=== PATIENT | male | born 1935 | race Asian ===

== ENCOUNTER 2017-04-02 15:02 | Emergency (ER) | payer OTHER, MEDICAID ==
[~2017-04-02] VITALS: Ht 170.2 cm; Wt 86.6 kg
--- NOTE | 2017-04-02 15:50 | NUR ---
VILMA AT BS.
[2017-04-02] MEDS ORDERED: ONDANSETRON 4 MG TAB.RAPDIS PO ONE (16:00)
[2017-04-02] MEDS ORDERED: HYDROCODONE/APAP 5/325MG 1 EACH TABLET PO ONE (16:00)
[2017-04-02] MEDS ORDERED: ONDANSETRON 4 MG TAB.RAPDIS ONE (16:22)
[2017-04-02] MEDS ORDERED: HYDROCODONE/APAP 5/325MG 1 EACH TABLET ONE (16:22)
--- NOTE | 2017-04-02 16:45 | NUR ---
PT TAKEN TO CT.
--- NOTE | 2017-04-02 17:50 | NUR ---
Pt ambulatory with a steady gait, uses a walker regularly.
--- NOTE | 2017-04-02 18:15 | NUR ---
Patient discharged to home in stable condition. Written and verbal after care instructions given. Patient verbalizes understanding of instruction.
[2017-04-02 18:29] VITALS: BP 149/85
== END 2017-04-02 18:30 | disposition home or self-care (01) ==
LOC: ER 15:03
DX: M17.9 Osteoarthritis of knee, unspecified (principal)
CPT/HCPCS: 73503; 73560; 73700; 99284; A4606; Q0162; 73502; Z7610

== ENCOUNTER 2017-04-29 18:34 | Inpatient (IN) | payer OTHER, BC ==
[~2017-04-29] VITALS: Ht 167.6 cm; Wt 80.7 kg
--- NOTE | 2017-04-29 18:45 | NUR ---
[id number] FROM HOME: SEVERE BACK PAIN. DENIES FALL/INJURY. PATIENT IS AWAKE AND ALERT, APPEARS IN NO APPRENT DISTRESS, RESPIRATION EVEN AND UNLABORED, SKIN IS WARM TO TOUCH AND NON DIAPHORETIC. PT IS AFEBRILE. VSS
[2017-04-29] MEDS ORDERED: TRAMADOL HCL 50 MG TABLET PO ONE (19:00)
[2017-04-29] MEDS ORDERED: ONDANSETRON 4 MG TAB.RAPDIS PO ONE (19:00)
--- NOTE | 2017-04-29 19:09 | NUR ---
PT IS BACK FROM CT
[2017-04-29] MEDS ORDERED: ONDANSETRON 4 MG TAB.RAPDIS ONE (19:12)
[2017-04-29] MEDS ORDERED: TRAMADOL HCL 50 MG TABLET ONE (19:13)
--- NOTE | 2017-04-29 19:43 | NUR ---
received report from noble carlin for manny.
--- NOTE | 2017-04-29 20:33 | NUR ---
RESTAURANT FRONT MANAGER ETA 20 MINS
--- NOTE | 2017-04-29 20:36 | NUR ---
TEXTED DR. ARCEO FOR MRI APPROVAL..
--- NOTE | 2017-04-29 23:40 | NUR ---
REPORT GIVEN TO MS MIKKI OWENS FOR BHARAT.
[2017-04-29 23:45] VITALS: BP 149/78
[2017-04-29 23:50] VITALS: BP 149/78
[2017-04-30] MEDS ORDERED: ONDANSETRON HCL/PF 4 MG/2 ML VIAL IVP PRN
[2017-04-30] MEDS ORDERED: MAG HYDROX/AL HYDROX/SIMETH 30 ML UDC PO PRN
[2017-04-30] MEDS ORDERED: MAGNESIUM HYDROXIDE 30 ML UDC PO PRN
[2017-04-30] MEDS ORDERED: ACETAMINOPHEN 325 MG TABLET PO PRN
[2017-04-30] MEDS ORDERED: ZOLPIDEM TARTRATE 5 MG TABLET PO PRN
[2017-04-30] MEDS: HYDROCODONE/APAP 10/325MG 1 EA TABLET PO PRN ×3 (00:46→17:52)
[2017-04-30 06:20] LABS: BASOPHILS # (AUTO) 0.1 /CMM (0.0-0.2); BASOPHILS % (AUTO) 0.5 % (0.0-2.0); EOSINOPHILS # (AUTO) 0.4 /CMM (0.0-0.7); EOSINOPHILS % (AUTO) 3.8 % (0.0-6.0); HEMATOCRIT 32 % (39-51); HEMOGLOBIN 10.9 g/dL (13.5-17.5); LYMPHOCYTES # (AUTO) 0.9 /CMM (0.8-4.8); LYMPHOCYTES % (AUTO) 9.2 % (20.0-44.0); MEAN CORPUSCULAR HEMOGLOBIN 32 PG (26.0-33.0); MEAN CORPUSCULAR HGB CONC 35 g/dl (31.0-36.0); MEAN CORPUSCULAR VOLUME 92 fL (80-96); MONOCYTES # (AUTO) 1.1 /CMM (0.1-1.30); MONOCYTES % (AUTO) 10.7 % (2.0-12.0); NEUTROPHILS # (AUTO) 7.7 /CMM (1.8-8.9); NEUTROPHILS % (AUTO) 75.8 % (43.0-81.0); PLATELET COUNT (AUTO) 234 /CMM (150-450); RDW COEFFICIENT OF VARIATION 14.5 (11.5-15.0); RED BLOOD CELL COUNT(AUTO) 3.45 MIL/uL (4.5-6.0); WHITE BLOOD COUNT (AUTO) 10.2 K/uL (4.3-11.0)
--- NOTE | 2017-04-30 06:26 | NUR ---
MS RN NOTES AWAKE & RESPONSIVE. NOT IN ANY DISTRESS. NO SOB NOTED. DENIES ANY PAIN OR DISCOMFORT AT THIS TIME. MONITORED ACCORDINGLY. CALL LIGHT WITHIN REACH. BED IN LOWEST POSITION. SR UP X3 WITH BED ALARM ON FOR SAFETY. WILL ENDORSE TO NEXT SHIFT.
[2017-04-30 06:31] LABS: CHOLESTEROL 89 mg/dL (<200); HDL CHOLESTEROL 40 mg/dL (40-60); LDL 45 mg/dL (0-99); TRIGLYCERIDES 82 mg/dL (30-150)
[2017-04-30 06:37] LABS: CALCIUM, SERUM 8.5 mg/dL (8.5-10.1); CARBON DIOXIDE 29 mmol/L (21-32); CHLORIDE 92 mmol/L (98-107); CREATININE 1.2 mg/dL (0.6-1.3); GLUCOSE 134 mg/dL (74-106); MAGNESIUM 1.9 mg/dL (1.8-2.4); PHOSPHORUS 3.8 mg/dL (2.5-4.9); SODIUM SERUM 128 mmol/L (136-145); UREA NITROGEN, BLOOD 23 mg/dL (7-18)
--- NOTE | 2017-04-30 07:40 | NUR ---
REPORT RECEIVED AT THE BEDSIDE. PATIENT IS SLEEPING. NO SOB OR DISTRESS NOTED AT THIS TIME. PATIENT DOES NOT APPEAR TO BE IN PAIN, NO FACIAL GRIMACE NOTED. BED IN A LOW POSITION, CALL LIGHT WITHIN PATIENT REACH. WILL CONTINUE TO MONITOR.
[2017-04-30 08:00] VITALS: BP 120/66
--- NOTE | 2017-04-30 08:05 | NUR ---
PT IS REFUSING IV ACCESS AT THIS TIME. STATES "IF I DON'T NEED ANYTHING RIGHT NOW, I DON'T WANT IT." INFORMED PATIENT OF NEED FOR IV ACCESS WHILE IN THE HOSPITAL, BUT PATIENT STILL REFUSES "ONLY WHEN I NEED IT." WILL INFORM MD.
[2017-04-30] MEDS ORDERED: AMLO5TAB2 PO (08:28)
[2017-04-30] MEDS ORDERED: GLIP5TAB26 PO (08:28)
[2017-04-30] MEDS ORDERED: ETOD300C30 PO (08:28)
[2017-04-30] MEDS ORDERED: TAMS0.4C34 PO (08:28)
[2017-04-30] MEDS ORDERED: HYDR-3972 PO (08:28)
[2017-04-30] MEDS ORDERED: TRAM50TA2 PO (08:28)
[2017-04-30] MEDS ORDERED: LISI1TAB13 PO (08:28)
[2017-04-30] MEDS ORDERED: METO50TA16 PO (08:28)
[2017-04-30] MEDS ORDERED: ATOR10TA PO (08:28)
[2017-04-30] MEDS ORDERED: ALLO300T2 PO (08:28)
--- NOTE | 2017-04-30 11:15 | NUR ---
DR JAMES PLACED ORDER FOR URINE SODIUM. PATIENT HAS JUST URINATED AND FAMILY HAS DISCARDED IT. WILL COLLECT ON NEXT URINATION.
--- NOTE | 2017-04-30 13:33 | NUR ---
PT AGAIN, URINATED AND THEN THE FAMILY FLUSHED THE SPECIMEN. EDUCATED THE FAMILY AGAIN TO CALL ME AND NOT TOUCH THE URINE UNTIL A SAMPLE IS OBTAINED. THEY STATE UNDERSTANDING.
--- NOTE | 2017-04-30 14:51 | NUR ---
REMINDED CARLTON LYNCH, OF NEED FOR MED RECON. GAS LOAD DISPATCHER STATES SHE WILL TAKE CARE OF IT.
[2017-04-30 15:45] LABS: URINE SODIUM, RANDOM 72 mmol/l (40-220)
[2017-04-30] MEDS ORDERED: glipiZIDE XL 2.5 MG TAB.OSM.24 PO SCH (15:47)
[2017-04-30 16:00] VITALS: BP 141/77
[2017-04-30] MEDS ORDERED: GLIPIZIDE XL 5 MG TAB.OSM.24 PO SCH (16:00)
--- NOTE | 2017-04-30 16:33 | NUR ---
[facility]IS CALLED AND STATED PER THE SURGEON, OK TO AMBULATE WITH PT, NOTHING TO DO SURGICALLY.
[2017-04-30] MEDS: LISINOPRIL (20MG) 20 MG TABLET PO SCH (16:41)
[2017-04-30] MEDS: METOPROLOL TARTRATE 50 MG TABLET PO SCH (16:41)
--- NOTE | 2017-04-30 16:55 | NUR ---
CALLED [facility] AND LEFT A MESSAGE ORDERING A THILORACIC LUMBAR SPINE BRACE PER CRIS'S ORDER. WAITING FOR THEM TO BRING BRACE.
[2017-04-30] MEDS ORDERED: ETODOLAC 300 MG PO SCH (17:00)
--- NOTE | 2017-04-30 17:09 | NUR ---
CALLED [facility] TO ORDER THILORACIC LUMBAR SPINE BRACE. IT IS NOW AFTER HOURS AND THEY ARE NOT ANSWERING. LEFT A MESSAGE TO CALL BACK THE PATIENT NEEDS THE BRACE. Addendum: 04/30/17 at 1711 by ANGIE GERBER RN [facility] NUMBER IS [phone]
[2017-04-30 17:18] LABS: OSMOLALITY,URINE 609 mOS/kg (340-1090)
[2017-04-30] MEDS: ATORVASTATIN 10 MG TABLET PO SCH (17:51)
--- NOTE | 2017-04-30 18:52 | NUR ---
NO SIGNIFICANT CHANGES IN PATIENT CONDITION THROUGHOUT THE SHIFT. NO SOB OR DISTRESS NOTED AT THIS TIME. PATIENT IS SLEEPING AND DOES NOT APPEAR TO BE IN PAIN, NO FACIAL GRIMACE NOTED. BED IN LOW POSITION, CALL LIGHT WITHIN PATIENT REACH. WILL ENDORSE FOR BHARAT.
--- NOTE | 2017-04-30 19:20 | NUR ---
MS RN NOTES RECEIVED PT IN BED, AWAKE, A/O X 4 . WATCHING TV AT THIS TIME. VERBALLY RESPONSIVE. NO DISTRESS, NOR SOB NOTED.RESPIRATION IS EVEN AND UNLABORED. NO C/O PAIN OR DISCOMFORT AT THIS TIME. ALL NEEDS ATTENDED AND MET. PLAN OF CARE DISCUSSED WITH PT, PT VERBALIZED UNDERSTANDING. SAFETY PRECAUTIONS OBSERVED. CALL LIGHT WITHIN REACH. WILL CONTINUE TO MONITOR.
[2017-04-30] MEDS: TRAMADOL HCL 50 MG TABLET PO PRN (19:32)
[2017-04-30 20:00] VITALS: BP 146/87
--- NOTE | 2017-04-30 21:30 | NUR ---
PT IS A/O X 4, VERBALLY RESPONSIVE. REFUSED IV INSERTION, RISK AND BENEFITS EXPLAINED. PT STILL REFUSED.
[2017-04-30] MEDS: AMLODIPINE BESYLATE 5 MG TABLET PO SCH (21:47)
[2017-05-01] MEDS: HYDROCODONE/APAP 10/325MG 1 EA TABLET PO PRN ×2 (03:34→08:20)
[2017-05-01 06:33] LABS: URINE SODIUM, RANDOM 46 mmol/l (40-220)
--- NOTE | 2017-05-01 06:37 | NUR ---
MS RN NOTES PT IN BED, RESTING COMFORTABLY AT THIS TIME, A/O X4, VERBALLY RESPONSIVE. NO DISTRESS, NOR SOB NOTED.RESPIRATION IS EVEN AND UNLABORED. NO C/O PAIN OR DISCOMFORT AT THIS TIME. ALL NEEDS ATTENDED AND MET. NO SIGNIFICANT CHANGES NOTED. PT REFUSED IV INSERTION,X 3. RISK AND BENEFITS EXPLAINED , PT STILL REFUSED. SAFETY PRECAUTIONS OBSERVED. CALL LIGHT WITHIN REACH. WILL ENDORSE TO NEXT SHIFT FOR BHARAT.
[2017-05-01 06:38] LABS: CALCIUM, SERUM 8.2 mg/dL (8.5-10.1); CARBON DIOXIDE 28 mmol/L (21-32); CHLORIDE 89 mmol/L (98-107); CREATININE 1.2 mg/dL (0.6-1.3); GLUCOSE 132 mg/dL (74-106); MAGNESIUM 1.9 mg/dL (1.8-2.4); PHOSPHORUS 3.7 mg/dL (2.5-4.9); POTASSIUM 4.2 mmol/L (3.5-5.1); SODIUM SERUM 125 mmol/L (136-145); UREA NITROGEN, BLOOD 23 mg/dL (7-18)
[2017-05-01 06:48] LABS: THYROID STIMULATING HORMONE 1.111 uIU/mL (0.358-3.74)
[2017-05-01 08:00] VITALS: BP 141/69
[2017-05-01] MEDS: TAMSULOSIN 0.4 MG CAP.SR.24H PO SCH (08:50)
[2017-05-01] MEDS: glipiZIDE XL 2.5 MG TAB.OSM.24 PO SCH (08:50)
[2017-05-01] MEDS: LISINOPRIL (20MG) 20 MG TABLET PO SCH (08:50)
[2017-05-01] MEDS: ALLOPURINOL 100 MG TABLET PO SCH (08:51)
[2017-05-01] MEDS: METOPROLOL TARTRATE 50 MG TABLET PO SCH ×2 (08:51→17:22)
[2017-05-01 08:59] LABS: OSMOLALITY,URINE 472 mOS/kg (340-1090)
[2017-05-01] MEDS ORDERED: HYDROCHLOROTHIAZIDE 25 MG TABLET PO SCH (09:00)
[2017-05-01 16:00] VITALS: BP 116/69
[2017-05-01] MEDS: ENOXAPARIN SODIUM 40 MG/0.4 ML DISP.SYRIN SQ SCH (16:17)
[2017-05-01] MEDS: ATORVASTATIN 10 MG TABLET PO SCH (17:22)
[2017-05-01] MEDS: HYDROCODONE/APAP 5/325MG 1 EACH TABLET PO PRN ×2 (18:24→22:29)
--- NOTE | 2017-05-01 19:06 | NUR ---
NO SIGNIFICANT CHANGE IN PATIENT CONDITION THROUGHOUT THE SHIFT. NO SOB OR DISTRESS NOTED AT THIS TIME. PATIENT REPORTS TOLERABLE PAIN. BED IN A LOW POSITION, CALL LIGHT WITHIN PATIENT REACH. WILL ENDORSE FOR BHARAT.
--- NOTE | 2017-05-01 19:45 | NUR ---
MS RN NOTES ON BED A/O X4,ABLE TO VERBALIZED NEEDS.NO SALINE LOCK,PATIENT REFUSED TO HAVE ONE.LUMBAR SPINE BRACE OFF THE MOMENT PER PATIENT REQUEST.ASSIST WITH REPOSITIONING.CALL LIGHT IN REACH,NEEDS ANTICIPATED.
[2017-05-01 20:00] VITALS: BP 132/72
[2017-05-01] MEDS: AMLODIPINE BESYLATE 5 MG TABLET PO SCH (22:30)
--- NOTE | 2017-05-01 22:30 | NUR ---
MS RN NOTES C/O BACK PAIN 4/10 ON PAIN SCALE,NORCO 5/325MG,1TAB PO GIVEN
[2017-05-02] MEDS: HYDROCODONE/APAP 5/325MG 1 EACH TABLET PO PRN ×2 (03:06→17:26)
[2017-05-02 06:31] LABS: BASOPHILS # (AUTO) 0.1 /CMM (0.0-0.2); BASOPHILS % (AUTO) 0.6 % (0.0-2.0); EOSINOPHILS # (AUTO) 0.5 /CMM (0.0-0.7); EOSINOPHILS % (AUTO) 5.1 % (0.0-6.0); HEMATOCRIT 32 % (39-51); HEMOGLOBIN 10.8 g/dL (13.5-17.5); LYMPHOCYTES # (AUTO) 0.9 /CMM (0.8-4.8); LYMPHOCYTES % (AUTO) 10.2 % (20.0-44.0); MEAN CORPUSCULAR HEMOGLOBIN 32 PG (26.0-33.0); MEAN CORPUSCULAR HGB CONC 34 g/dl (31.0-36.0); MEAN CORPUSCULAR VOLUME 92 fL (80-96); MONOCYTES % (AUTO) 10.8 % (2.0-12.0); NEUTROPHILS # (AUTO) 6.8 /CMM (1.8-8.9); NEUTROPHILS % (AUTO) 73.3 % (43.0-81.0); PLATELET COUNT (AUTO) 257 /CMM (150-450); RDW COEFFICIENT OF VARIATION 14.3 (11.5-15.0); RED BLOOD CELL COUNT(AUTO) 3.44 MIL/uL (4.5-6.0); WHITE BLOOD COUNT (AUTO) 9.2 K/uL (4.3-11.0)
--- NOTE | 2017-05-02 06:37 | NUR ---
MS RN NOTES FAIRLY RESTED AT NIGHT.MORNING CARE RENDERED.STILL WITH PAIN ON RIGHT LOWER LEG.FOR VENOUS DUPLEX THIS MORNING TO R/O DVT.IN NO ACUTE DISTRESS.WILL ENDORSE TO DAY NURSE FOR BHARAT.
[2017-05-02 07:20] LABS: ALANINE AMINOTRANSFERASE 23 U/L (12-78); ALBUMIN 2.8 g/dL (3.4-5.0); ALKALINE PHOSPHATASE 189 U/L (46-116); ASPARTATE AMINOTRANSFERASE 23 U/L (15-37); BILIRUBIN,TOTAL 0.4 mg/dL (0.2-1.0); CALCIUM, SERUM 8.3 mg/dL (8.5-10.1); CARBON DIOXIDE 29 mmol/L (21-32); CHLORIDE 89 mmol/L (98-107); CREATININE 1.4 mg/dL (0.6-1.3); GLUCOSE 123 mg/dL (74-106); MAGNESIUM 1.9 mg/dL (1.8-2.4); PHOSPHORUS 3.5 mg/dL (2.5-4.9); SODIUM SERUM 126 mmol/L (136-145); TOTAL PROTEIN, SERUM 6.8 g/dL (6.4-8.2); UREA NITROGEN, BLOOD 27 mg/dL (7-18)
[2017-05-02] MEDS: HYDROCODONE/APAP 10/325MG 1 EA TABLET PO PRN ×3 (07:54→23:34)
[2017-05-02 08:00] VITALS: BP 126/69
--- NOTE | 2017-05-02 08:00 | NUR ---
RN MS NOTES PT IN BED, AWAKE, ALERT AND ORIENTED, WITH COMPLAINT OF RIGHT LEG PAIN, PAIN MEDICATION GIVEN ORDERED, WILL REASSESS NEEDED, CALL LIGHT WITHIN REACH, PLAN OF CARE DISCUSSED WITH PT, VERBALIZED UNDERSTANDING, NEEDS ATTENDED.
[2017-05-02] MEDS: METOPROLOL TARTRATE 50 MG TABLET PO SCH ×2 (09:03→17:22)
[2017-05-02] MEDS: ALLOPURINOL 100 MG TABLET PO SCH (09:03)
[2017-05-02] MEDS: TAMSULOSIN 0.4 MG CAP.SR.24H PO SCH (09:03)
[2017-05-02] MEDS: glipiZIDE XL 2.5 MG TAB.OSM.24 PO SCH (09:04)
[2017-05-02] MEDS: LISINOPRIL (20MG) 20 MG TABLET PO SCH (09:04)
--- NOTE | 2017-05-02 12:45 | NUR ---
RN MS NOTES PT IN BED, AWAKE, ALERT AND ORIENTED, WATCHING TV, CALL LIGHT WITHIN REACH, NEEDS ATTENDED IMMEDIATELY, PAIN MEDS GIVEN ORDERED FOR RIGHT LEG PAIN, KEPT WARM AND COMFORTABLE.
[2017-05-02 13:11] LABS: APPEARANCE,URINE CLEAR (CLEAR); BILIRUBIN,URINE NEGATIVE (NEGATIVE); BLOOD, URINE NEGATIVE Ery/uL (NEGATIVE); COLOR,URINE YELLOW (YELLOW); KETONES,URINE NEGATIVE (NEGATIVE); LEUKOCYTE ESTERASE ,URINE NEGATIVE (NEGATIVE); NITRITE, URINE NEGATIVE (NEGATIVE); PROTEIN,URINE TRACE mg/dl (NEGATIVE); UGLUCOSE NEGATIVE (NEGATIVE); UROBILINOGEN,URINE 0.2 EU/dL (0.2)
[2017-05-02 13:17] LABS: BACTERIA,URINE Rare /HPF (None Seen); RBC,URINE 0-2 /HPF (0-2); SQUAMOUS EPITHELIAL CELL,UR Rare /HPF (None Seen); WBC,URINE 0-2 /HPF (0-3)
[2017-05-02 13:23] LABS: EOSINOPHIL,URINE None Seen
[2017-05-02 13:39] LABS: CREATININE, URINE 87.5 MG/DL (30.0-125.0); URINE TOTAL PROTEIN 28.7 mg/dL (0-11.9)
--- NOTE | 2017-05-02 15:35 | NUR ---
RN MS NOTES PT IN BED, ASLEEP, EASY TO AROUSE, NO COMPLAINT OF PAIN AT THIS TIME, RESPIRATIONS NORMAL, PT SEEN BY CRIS PAIN COORDINATOR, PLAN OF CARE DISCUSSED WITH PT, VERBALIZED UNDERSTANDING, CALL LIGHT PLACED WITHIN REACH, KEPT COMFORTABLE.
[2017-05-02 16:00] VITALS: BP 113/71
[2017-05-02] MEDS: ATORVASTATIN 10 MG TABLET PO SCH (17:22)
[2017-05-02] MEDS: IV NS 0.9% 1,000 ML IV PRN (17:22)
--- NOTE | 2017-05-02 18:30 | NUR ---
RN MS NOTES PT IN BED, AWAKE, ALERT AND ORIENTED, BREATHING PATTERN NORMAL, CALL LIGHT WITHIN REACH, PM MEDS GIVEN ORDERED, NEEDS ATTENDED.
[2017-05-02] MEDS: TRAMADOL HCL 50 MG TABLET PO PRN (19:42)
[2017-05-02 20:00] VITALS: BP 121/69
[2017-05-02] MEDS: ENOXAPARIN SODIUM 40 MG/0.4 ML DISP.SYRIN SQ SCH (20:47)
[2017-05-02] MEDS: AMLODIPINE BESYLATE 5 MG TABLET PO SCH (22:09)
[2017-05-03] MEDS: TRAMADOL HCL 50 MG TABLET PO PRN ×2 (04:20→13:34)
--- NOTE | 2017-05-03 06:17 | NUR ---
MS RN NOTES AWAKE & RESPONSIVE. NOT IN ANY DISTRESS. NO SOB NOTED. DENIES ANY PAIN OR DISCOMFORT AT THIS TIME. WITH IVF INFUSING WELL. MONITORED ACCORDINGLY. CALL LIGHT WITHIN REACH. BED IN LOWEST POSITION. SR UP X 2 FOR SAFETY. WILL ENDORSE TO NEXT SHIFT.
[2017-05-03] MEDS: IV NS 0.9% 1,000 ML IV PRN (06:34)
[2017-05-03 07:19] LABS: ALANINE AMINOTRANSFERASE 21 U/L (12-78); ALBUMIN 2.9 g/dL (3.4-5.0); ALKALINE PHOSPHATASE 195 U/L (46-116); ASPARTATE AMINOTRANSFERASE 21 U/L (15-37); BILIRUBIN,TOTAL 0.5 mg/dL (0.2-1.0); CARBON DIOXIDE 27 mmol/L (21-32); CHLORIDE 91 mmol/L (98-107); CREATININE 1.4 mg/dL (0.6-1.3); GLUCOSE 98 mg/dL (74-106); PHOSPHORUS 4.1 mg/dL (2.5-4.9); POTASSIUM 3.9 mmol/L (3.5-5.1); SODIUM SERUM 126 mmol/L (136-145); UREA NITROGEN, BLOOD 26 mg/dL (7-18)
[2017-05-03 07:29] LABS: BASOPHILS # (AUTO) 0.1 /CMM (0.0-0.2); BASOPHILS % (AUTO) 0.6 % (0.0-2.0); EOSINOPHILS # (AUTO) 0.5 /CMM (0.0-0.7); EOSINOPHILS % (AUTO) 5.2 % (0.0-6.0); HEMATOCRIT 31 % (39-51); HEMOGLOBIN 10.4 g/dL (13.5-17.5); LYMPHOCYTES # (AUTO) 1.2 /CMM (0.8-4.8); MEAN CORPUSCULAR HEMOGLOBIN 32 PG (26.0-33.0); MEAN CORPUSCULAR HGB CONC 34 g/dl (31.0-36.0); MEAN CORPUSCULAR VOLUME 92 fL (80-96); MONOCYTES % (AUTO) 10.5 % (2.0-12.0); NEUTROPHILS # (AUTO) 6.7 /CMM (1.8-8.9); NEUTROPHILS % (AUTO) 70.7 % (43.0-81.0); PLATELET COUNT (AUTO) 251 /CMM (150-450); RDW COEFFICIENT OF VARIATION 14.3 (11.5-15.0); WHITE BLOOD COUNT (AUTO) 9.4 K/uL (4.3-11.0)
[2017-05-03 08:00] VITALS: BP 116/65
[2017-05-03] MEDS: METOPROLOL TARTRATE 50 MG TABLET PO SCH ×2 (09:00→17:00)
[2017-05-03] MEDS: TAMSULOSIN 0.4 MG CAP.SR.24H PO SCH (09:13)
[2017-05-03] MEDS: LISINOPRIL (20MG) 20 MG TABLET PO SCH (09:14)
[2017-05-03] MEDS: ALLOPURINOL 100 MG TABLET PO SCH (09:14)
[2017-05-03] MEDS: glipiZIDE XL 2.5 MG TAB.OSM.24 PO SCH (09:15)
[2017-05-03] MEDS: HYDROCODONE/APAP 10/325MG 1 EA TABLET PO PRN (10:25)
[2017-05-03] MEDS ORDERED: DOCU-141 PO (12:08)
[2017-05-03 16:00] VITALS: BP 126/67
[2017-05-03 17:00] VITALS: BP 126/67
[2017-05-03] MEDS: HYDROCODONE/APAP 5/325MG 1 EACH TABLET PO PRN (17:52)
--- NOTE | 2017-05-03 18:15 | NUR ---
RN NOTES: PATIENT DISCHARGED TO HOME WITH HOME HEALTH PER CRIS DUMONT, STREETCAR REPAIRER'S ORDERS. PER STREETCAR REPAIRER, PATIENT TO AMBULATE WITH PHYSICAL THERAPY TODAY, AND TO OBTAIN ANOTHER TLSO BRACE. STREETCAR REPAIRER AWARE OF LABS. PATIENT AMBULATE WITH PT, TOLERATED WELL. PATIENT BEING MONITORED FOR SEIZURES. NO SEIZURES NOTED DURING SHIFT. ALL VALUABLES RETURNED TO PATIENT INCLUDING 2 TLSO BRACES. EXISTCARE INSTRUCTIONS GIVEN TO PATIENT, VERBALIZED UNDERSTANDING OF INSTRUCTIONS. PATIENT REFUSED FLU VACCINE. BENEFITS AND RISKS EXPLAINED TO PATIENT. IV LINE REMOVED. NORCO ADMINISTERED PRIOR TO DISCHARGE. PATIENT STATED THAT HE FELT 'MUCH BETTER" AFTER ADMINISTRATION. PATIENT PICKED UP BY FRIEND VAUGHN. PATIENT STABLE, TAKEN TO CAR VIA STAFF MEMBERS. PATIENT LEFT STABLE VIA PRIVATE CAR
== END 2017-05-03 18:15 | disposition home health service (06) | DRG 542 ==
LOC: ER 18:36 → MEDSG2 23:24
PROVIDERS: ADMIT Nurse Practitioner Acute Care; ATTEND Nurse Practitioner Acute Care
DX: M84.48XA Pathological fracture, other site, initial encounter for fracture (principal); N17.0 Acute kidney failure with tubular necrosis; E22.2 Syndrome of inappropriate secretion of antidiuretic hormone; E11.9 Type 2 diabetes mellitus without complications; E78.5 Hyperlipidemia, unspecified; I10 Essential (primary) hypertension; Y99.9 Unspecified external cause status; T50.2X5A Adverse effect of carbonic-anhydrase inhibitors, benzothiadiazides and other diuretics, initial encounter; M10.9 Gout, unspecified; N40.0 Benign prostatic hyperplasia without lower urinary tract symptoms; M47.9 Spondylosis, unspecified; M19.90 Unspecified osteoarthritis, unspecified site; Y92.009 Unspecified place in unspecified non-institutional (private) residence as the place of occurrence of the external cause; Z91.81 History of falling
CPT/HCPCS: 36415; 72131-TC; 72148-TC; 73590-TC; 76770-TC; 80048-TC; 80053-TC; 80061-TC; 81000-TC; 82570-TC; 82962-TC; 83735-TC; 83935-TC; 84100-TC; 84155-TC; 84300-TC; 84443-TC; 84550-TC; 85025-TC; 87081-TC; 93971-TC; 97110-TC; 97116-TC; 97530-TC; A4606; J1650; J7030; Q0162; Z7610

== ENCOUNTER 2017-08-19 18:37 | Emergency (ER) | payer OTHER ==
[~2017-08-19] VITALS: Ht 170.2 cm; Wt 74.8 kg
[~2017-08-19 18:37] MED LIST: ALLO300T2 PO; AMLO5TAB2 PO; ATOR10TA PO; DOCU-141 PO; ETOD300C30 PO; GLIP5TAB26 PO; HYDR-3972 PO; LISI1TAB13 PO; METO50TA16 PO; TAMS0.4C34 PO; TRAM50TA2 PO
--- NOTE | 2017-08-19 19:10 | NUR ---
PT PRESENTED TO THE ER WITH A C/O BLOODY URINE X 2 DAYS. PT AMBULATED TO BED #13 WITH CANE. NO S/S OF PAIN OR DISTRESS NOTED. RESP EVEN AND UNLABORED. PT'S IS AT THE BEDSIDE. PT IS ON THE MONITOR AND CONTINUOUS PULSE OX. VSS.
--- NOTE | 2017-08-19 19:18 | NUR ---
LAB AT THE BEDSIDE FOR BLOOD DRAW. URINE SAMPLE OBTAINED AND GIVEN TO LAB.
[2017-08-19 19:20] LABS: APPEARANCE,URINE Cloudy (CLEAR); BILIRUBIN,URINE SMALL (NEGATIVE); BLOOD, URINE Large Ery/uL (NEGATIVE); COLOR,URINE Red (YELLOW); KETONES,URINE Trace (NEGATIVE); LEUKOCYTE ESTERASE ,URINE Negative (NEGATIVE); NITRITE, URINE Negative (NEGATIVE); PH,URINE 5.5 (5.0-8.0); PROTEIN,URINE >=300 mg/dl (NEGATIVE); UGLUCOSE Negative (NEGATIVE); UROBILINOGEN,URINE 0.2 EU/dL (0.2)
[2017-08-19 19:25] LABS: BASOPHILS % (AUTO) 0.2 % (0.0-2.0); EOSINOPHILS % (AUTO) 6.9 % (0.0-6.0); HEMATOCRIT 30 % (39-51); HEMOGLOBIN 10.4 g/dL (13.5-17.5); LYMPHOCYTES # (AUTO) 0.8 /CMM (0.8-4.8); MEAN CORPUSCULAR HEMOGLOBIN 31 PG (26.0-33.0); MEAN CORPUSCULAR HGB CONC 35 g/dl (31.0-36.0); MEAN CORPUSCULAR VOLUME 90 fL (80-96); MONOCYTES # (AUTO) 0.6 /CMM (0.1-1.30); NEUTROPHILS # (AUTO) 5.1 /CMM (1.8-8.9); NEUTROPHILS % (AUTO) 71.9 % (43.0-81.0); PLATELET COUNT (AUTO) 260 /CMM (150-450); RDW COEFFICIENT OF VARIATION 13.8 (11.5-15.0); RED BLOOD CELL COUNT(AUTO) 3.34 MIL/uL (4.5-6.0)
[2017-08-19 19:34] LABS: BACTERIA,URINE None seen /HPF (None Seen); RBC,URINE TOO NUMEROUS TO COUN /HPF (0-2); SQUAMOUS EPITHELIAL CELL,UR None Seen /HPF (None Seen); WBC,URINE NONE SEEN /HPF (0-3)
[2017-08-19 19:35] LABS: CALCIUM, SERUM 8.9 mg/dL (8.5-10.1); CARBON DIOXIDE 26 mmol/L (21-32); CHLORIDE 96 mmol/L (98-107); CREATININE 1.2 mg/dL (0.6-1.3); GLUCOSE 171 mg/dL (74-106); POTASSIUM 3.8 mmol/L (3.5-5.1); SODIUM SERUM 129 mmol/L (136-145); UREA NITROGEN, BLOOD 15 mg/dL (7-18)
[2017-08-19 19:40] LABS: INR 0.96 (0.85-1.15)
[2017-08-19 19:41] LABS: ALANINE AMINOTRANSFERASE 23 U/L (12-78); ALBUMIN 3.2 g/dL (3.4-5.0); ALKALINE PHOSPHATASE 182 U/L (46-116); ASPARTATE AMINOTRANSFERASE 47 U/L (15-37); BILIRUBIN,DIRECT 0.1 mg/dL (0.0-0.2); BILIRUBIN,TOTAL 0.3 mg/dL (0.2-1.0); TOTAL PROTEIN, SERUM 7.4 g/dL (6.4-8.2)
--- NOTE | 2017-08-19 20:55 | NUR ---
RESTING COMFORTABLY, NEG DISTRESS
--- NOTE | 2017-08-19 21:17 | NUR ---
ULTRASOUND AT BEDSIDE
--- NOTE | 2017-08-19 22:29 | NUR ---
Assumed care during discharge. Patient discharged to home in stable condition. Written and verbal after care instructions given. Patient verbalizes understanding of instruction. vss upon discharge
[2017-08-19 22:30] VITALS: BP 133/65
== END 2017-08-19 22:31 | disposition home or self-care (01) ==
LOC: ER 18:42
DX: R31.0 Gross hematuria (principal); N40.0 Benign prostatic hyperplasia without lower urinary tract symptoms; I10 Essential (primary) hypertension; E11.9 Type 2 diabetes mellitus without complications
CPT/HCPCS: 36415; 76770; 80048; 80076; 81001; 85025; 85730; 87086; 99285; A4606; 81000-TC; Z7610

== ENCOUNTER 2017-09-30 14:49 | Inpatient (IN) | payer MEDICARE, BC ==
[~2017-09-30] VITALS: Ht 170.2 cm; Wt 72.1 kg
--- NOTE | 2017-09-30 14:50 | NUR ---
BIB C/O SOB ON EXACERBATION. NAD NOTED, VSS, RESP EVEN AND UNLABORED. PT WAS PUT ON MONITOR AND HOSPITAL GOWN, WAITING FOR MD CABRERA.
[2017-09-30] MEDS ORDERED: CEFEPIME 1 GM in IV D5W 50 ML IV ONE (15:30)
[2017-09-30] MEDS ORDERED: IV NS 0.9% 1,000 ML BAG IV ONE (15:30)
[2017-09-30] MEDS ORDERED: VANCOMYCIN 1 GM in IV D5W 250 ML IV ONE (15:30)
[2017-09-30 15:33] LABS: BASOPHILS % (AUTO) 0.2 % (0.0-2.0); EOSINOPHILS % (AUTO) 1.1 % (0.0-6.0); HEMATOCRIT 29 % (39-51); HEMOGLOBIN 9.5 g/dL (13.5-17.5); INR 1.04 (0.87-1.13); LYMPHOCYTES # (AUTO) 0.9 /CMM (0.8-4.8); LYMPHOCYTES % (AUTO) 9.1 % (20.0-44.0); MEAN CORPUSCULAR HEMOGLOBIN 30 PG (26.0-33.0); MEAN CORPUSCULAR HGB CONC 33 g/dl (31.0-36.0); MEAN CORPUSCULAR VOLUME 91 fL (80-96); MONOCYTES # (AUTO) 0.8 /CMM (0.1-1.30); MONOCYTES % (AUTO) 8.2 % (2.0-12.0); NEUTROPHILS # (AUTO) 7.8 /CMM (1.8-8.9); NEUTROPHILS % (AUTO) 81.4 % (43.0-81.0); PLATELET COUNT (AUTO) 350 /CMM (150-450); RDW COEFFICIENT OF VARIATION 14.8 (11.5-15.0); RED BLOOD CELL COUNT(AUTO) 3.17 MIL/uL (4.5-6.0); WHITE BLOOD COUNT (AUTO) 9.6 K/uL (4.3-11.0)
[2017-09-30 15:34] LABS: CALCIUM, SERUM 7.9 mg/dL (8.5-10.1); CARBON DIOXIDE 23 mmol/L (21-32); CHLORIDE 93 mmol/L (98-107); CREATININE 1.1 mg/dL (0.6-1.3); GLUCOSE 165 mg/dL (74-106); POTASSIUM 3.9 mmol/L (3.5-5.1); SODIUM SERUM 126 mmol/L (136-145); UREA NITROGEN, BLOOD 14 mg/dL (7-18)
[2017-09-30] MEDS ORDERED: MULT-447 PO (15:43)
[2017-09-30] MEDS ORDERED: ASPI-1152 PO (15:43)
[2017-09-30 16:00] LABS: TROPONIN I < 0.017 ng/mL (0.00-0.056)
[2017-09-30 16:02] LABS: ALANINE AMINOTRANSFERASE 23 U/L (12-78); ALBUMIN 2.7 g/dL (3.4-5.0); ALKALINE PHOSPHATASE 517 U/L (46-116); ASPARTATE AMINOTRANSFERASE 246 U/L (15-37); B-TYPE NATRIURETIC PEPTIDE 844 PG/ML (0-125); BILIRUBIN,DIRECT 0.1 mg/dL (0.0-0.2); BILIRUBIN,TOTAL 0.4 mg/dL (0.2-1.0); TOTAL PROTEIN, SERUM 7.4 g/dL (6.4-8.2)
[2017-09-30 16:30] VITALS: BP 169/78
[2017-09-30] MEDS ORDERED: MAG HYDROX/AL HYDROX/SIMETH 30 ML UDC PO PRN (16:30)
[2017-09-30] MEDS ORDERED: Z GUARD REMEDY 2 OZ OINT TP PRN (16:30)
--- NOTE | 2017-09-30 16:30 | NUR ---
RESEARCH HOME ECONOMISTLABEL PRESS OPERATOR NOTE PT ARRIVED VIA GURNEY IN STABLE CONDITION, ABLE TO AMBULATE WITH ASSISTANCE. HOWEVER, PT NOTED WITH SOB UPON EXERTION. PT IS A/O X4, AFEBRILE. PT EXPERIENCING SOB AT THIS TIME. PT ABLE TO SIT AT EDGE OF BED IN TRIPOD POSITION, O2 @2L/MIN VIA NC SATURATING 98%. EDUCATED PT ON PURSED LIP BREATHING AND TAKING SLOW DEEP BREATHS, NOTED TO BE EFFECTIVE. PUPILS ARE REACTIVE TO LIGHT. BILATERAL HAND TUMBLING AND ROLLING SUPERVISOR ARE STRONG AND EQUAL. TELE LEADS PLACED AND PT IS SINUS TACHY AT 113. ABDOMEN IS SOFT AND NONDISTENDED. DENIES ANY BLADDER DISCOMFORT. PT ABLE TO URINATE USING A URINAL. . IV SITE TO RAC INTACT, G18, NO INFILTRATION NOTED. DRESSING KEPT CLEAN AND DRY. PT ABLE TO LAY DOWN WITH HOB KEPT >45 DEGREES, NOTED TO BE EFFECTIVE. DISCOLORATION AND PITTING EDEMA NOTED TO BLE. PHOTOS TAKEN AND PLACED IN PT'S CHART. BELONGINGS LIST DONE. SAFETY MEASURES ARE IN PLACE. INSTRUCTED PT TO USE CALL LIGHT WHEN ASSISTANCE IS NEEDED, CALL LIGHT IS LEFT WITHIN REACH. DR. LIZ AWARE OF ADMISSION AND CLARIFIED IV FLUIDS TO BE ADMINISTERED WITH PT NOTED WITH CRACKLES TO LOWER LUNG BASE. PER DR. LIZ, ORDERS ARE IN AND OKAY TO ADMINISTER. WILL CONTINUE TO MONITOR THROUGHOUT SHIFT FOR CONTINUITY OF CARE.
[2017-09-30] MEDS ORDERED: FEE PK DOSING 1 MIN EA MC ONE (16:42)
[2017-09-30] MEDS ORDERED: AMMO225L14 TD (16:54)
[2017-09-30] MEDS ORDERED: IV NS 0.9% 1,000 ML IV PRN (17:00)
--- NOTE | 2017-09-30 18:53 | NUR ---
INFORMATION TECHNOLOGY COORDINATOR NOTES PT SEEN AND EXAMINED BY DR. LIZ.
--- NOTE | 2017-09-30 18:54 | NUR ---
AUDIOPROSTHOLOGIST CLOSING NOTES ALL NEEDS MET AND RENDERED. PT REMAINS A/O X4, AFEBRILE. RESPIRATIONS ARE EVEN AND UNLABORED, NOT IN ANY ACUTE DISTRESS NOTED. DENIES ANY PAIN AT THIS TIME, C/O SOB UPON EXERTION, REEDUCATED PT ON ENERGY CONSERVATION AND DEEP BREATHING TECHNIQUES. NO C/O N/V. IV FLUIDS INFUSING AT 75ML/HR AND TOLERATING WELL. IV SITE IS INTACT, NO INFILTRATION NOTED. DRESSING KEPT CLEAN AND DRY. SAFETY MEASURES ARE IN PLACE. CALL LIGHT IS LEFT WITHIN REACH AND IS AT BEDSIDE. WILL ENDORSE TO NEXT SHIFT FOR CONTINUITY OF CARE.
--- NOTE | 2017-09-30 19:15 | NUR ---
TELE/RN OPENING NOTES PT RECEIVED A/OX3. ON 2L O2 VIA NC, BREATHING EVEN AND UNLABORED. NO C/O OF SOB AT THIS TIME. ECHO BEING COMPLETED AT THIS TIME. IV TO RAC PATENT AND INTACT RUNNING IVF ORDERED. AT BEDSIDE. BED IN LOW/LOCKED POSITION WITH CALL LIGHT IN REACH. SIDE RAILS UPX2. WILL CONTINUE TO MONITOR Addendum: 09/30/17 at 4 by BETTIE MUNOZ RN PT SITTING ON EDGE OF BED. BREATHING IS LABORED AND PT C/O SOB. TELE MONITOR SHOWING ST 127. EDUCATED PT ON ENERGY CONSERVATION, ASSISTED BACK IN BED WITH HOB ELEVATED.
[2017-09-30 20:00] VITALS: BP 160/77
[2017-09-30 20:17] VITALS: BP 160/77
--- NOTE | 2017-09-30 21:50 | NUR ---
TELE/RN NOTES PAGED EPIC. PT WITH INCREASING SOB, ST 140'S. JORDAN LAYTON SAID HE WOULD COME TO THE UNIT TO ASSESS PT
[2017-09-30] MEDS ORDERED: FUROSEMIDE 40 MG/4 ML VIAL IV ONE (22:30)
--- NOTE | 2017-09-30 22:35 | NUR ---
TELE/RN NOTES RADIOLOGY AT BEDSIDE
[2017-09-30] MEDS ORDERED: METOPROLOL TARTRATE INJ 5 MG/5 ML AMPUL IV ONE (23:30)
--- NOTE | 2017-09-30 23:36 | NUR ---
TELE/RN NOTES RELAYED RESULT OF EKG TO JORDAN LAYTON Addendum: 10/01/17 at 0004 by BETTIE MUNOZ RN CLARIFIED METOPROLOL 25MG IV ORDER. JORDAN SAID HE WILL CHANGE, WAS SUPPOSED TO BE 50MG PO. HE WILL COME BACK TO THE UNIT
[2017-10-01] VITALS (7 sets, daily range): BP systolic 141–157; BP diastolic 76–86
[2017-10-01] MEDS ORDERED: METOPROLOL TARTRATE 25 MG TABLET PO ONE (00:30)
[2017-10-01] MEDS: VANCOMYCIN 0.75 GM in IV D5W 250 ML IV SCH ×2 (03:46→15:25)
--- NOTE | 2017-10-01 06:31 | NUR ---
TELE/RN CLOSING NOTES PT RESTING IN BED. HOB HIGH FOWLERS POSITION. ON 3L NC, BREATHING CURRENTLY EVEN AND UNLABORED. SPO2 94-99%. SOB UPON EXERTION, REMINDED OF ENERGY CONSERVATION. CURRENTLY SHOWING ST WITH BBB 107. PT WITH EPISODE OF 3 SEC SVT, JORDAN LAYTON AWARE. ADMINISTERED 25MG PO METOPROLOL AND EKG DONE WITH RESULTS RELAYED. PLACED ON FLUID RESTRICTION 800ML/DAY. RAC PATENT AND INTACT RUNNING IVF ORDERED. ALL NEEDS MET. KEPT PT COMFORTABLE POSSIBLE. BED IN LOW/LOCKED POSITION WITH CALL LIGHT IN REACH. SIDE RAILS UPX2. WILL ENDORSE TO DAY SHIFT RN BHARAT.
[2017-10-01 06:32] LABS: BASOPHILS % (AUTO) 0.1 % (0.0-2.0); EOSINOPHILS % (AUTO) 0.4 % (0.0-6.0); HEMATOCRIT 28 % (39-51); HEMOGLOBIN 9.3 g/dL (13.5-17.5); LYMPHOCYTES # (AUTO) 0.6 /CMM (0.8-4.8); LYMPHOCYTES % (AUTO) 5.9 % (20.0-44.0); MEAN CORPUSCULAR HEMOGLOBIN 30 PG (26.0-33.0); MEAN CORPUSCULAR HGB CONC 34 g/dl (31.0-36.0); MEAN CORPUSCULAR VOLUME 91 fL (80-96); MONOCYTES # (AUTO) 0.9 /CMM (0.1-1.30); MONOCYTES % (AUTO) 8.6 % (2.0-12.0); PLATELET COUNT (AUTO) 311 /CMM (150-450); RDW COEFFICIENT OF VARIATION 14.7 (11.5-15.0); RED BLOOD CELL COUNT(AUTO) 3.05 MIL/uL (4.5-6.0); WHITE BLOOD COUNT (AUTO) 10.6 K/uL (4.3-11.0)
[2017-10-01 07:09] LABS: CALCIUM, SERUM 7.7 mg/dL (8.5-10.1); CARBON DIOXIDE 25 mmol/L (21-32); CHLORIDE 92 mmol/L (98-107); CREATININE 0.9 mg/dL (0.6-1.3); GLUCOSE 179 mg/dL (74-106); MAGNESIUM 1.7 mg/dL (1.8-2.4); PHOSPHORUS 3.2 mg/dL (2.5-4.9); POTASSIUM 3.8 mmol/L (3.5-5.1); SODIUM SERUM 127 mmol/L (136-145); UREA NITROGEN, BLOOD 10 mg/dL (7-18)
[2017-10-01 07:11] LABS: CHOLESTEROL 93 mg/dL (<200); HDL CHOLESTEROL 47 mg/dL (40-60); LDL 42 mg/dL (0-99); TRIGLYCERIDES 62 mg/dL (30-150)
--- NOTE | 2017-10-01 07:35 | NUR ---
SUPPORTABILITY ENGINEER NOTES PATIENT RECEIVED RESTING INSIDE ROOM. AWAKE, ALERT AND ORIENTED X 4. VERBALLY RESPONSIVE AND RESPONDS TO VERBAL AND TACTILE STIMULI. PATIENT BREATHING EVEN AND UNLABORED AT THIS TIME. PER PATIENT, HE WOULD EXPERIENCE SOB WHEN LYING FLAT ON BED. HOB CURRENTLY ELEVATED AT 45. IV INTACT AND PATENT, NO SWELLING OR BLEEDING NOTED ON SITE. PATIENT AFEBRILE, SKIN DRY AND WARM TO TOUCH. ON TELEMETRY, FISCAL ACCOUNTANT IN PLACE, SINUS TACH AT 117 BPM. PATIENT DENIES ANY CHEST PAIN OR ANY DISCOMFORT. WILL CONTINUE TO MONITOR. BED LOCKED AND IN LOW POSITION. BILATERAL UPPER SIDE RAILS UP AND LOCKED. CALL LIGHT WITHIN EASY REACH
[2017-10-01] MEDS: MULTIVIT, IRON, MIN NO. 8, FA 1 TAB PO SCH (08:41)
[2017-10-01] MEDS: ATORVASTATIN 10 MG TABLET PO SCH (08:42)
[2017-10-01] MEDS: LISINOPRIL (20MG) 20 MG TABLET PO SCH (08:42)
[2017-10-01] MEDS: ALLOPURINOL 100 MG TABLET PO SCH (08:42)
[2017-10-01] MEDS: ASPIRIN EC 81 MG TABLET.DR PO SCH (08:42)
[2017-10-01] MEDS: METOPROLOL TARTRATE 50 MG TABLET PO SCH ×2 (08:43→16:46)
[2017-10-01] MEDS: AMMONIUM LACTATE 227 GM BOTTLE TP SCH ×2 (08:45→17:18)
--- NOTE | 2017-10-01 08:53 | NUR ---
MS RN NOTES PATIENT SEEN AND EXAMINED BY DR. LIZ, WITH ORDER TO DC FLUID RESTRICTION AND HOLD METOPROLOL AT THIS TIME. ORDERS NOTED AND CARRIED OUT. PATIENT MADE AWARE AND VERBALIZED UNDERSTANDING. WILL CONTINUE TO MONITOR
[2017-10-01] MEDS ORDERED: HYDROCHLOROTHIAZIDE 25 MG TABLET PO SCH (09:00)
[2017-10-01] MEDS ORDERED: IV NS 0.9% 1,000 ML BAG IV SCH (09:00)
[2017-10-01] MEDS: IPRATROPIUM NEB FS 0.5 MG/2.5 ML AMPUL.NEB NEB PRN (11:08)
[2017-10-01] MEDS: Magnesium 1GM/D5W 100ML PREMIX 100 ML IV SCH ×2 (11:13→13:06)
[2017-10-01] MEDS: CEFEPIME 2 GM in IV D5W 100 ML IV SCH ×2 (12:13→23:58)
[2017-10-01 12:30] LABS: URINE SODIUM, RANDOM 108 mmol/l (40-220)
[2017-10-01 12:34] LABS: OSMOLALITY,URINE 416 mOS/kg (340-1090)
[2017-10-01] MEDS ORDERED: CEFEPIME 1 GM in IV NS 0.9% 50 ML IV SCH (16:00)
[2017-10-01] MEDS: LACTOBACILLUS RHAMNOSUS GG 1 EACH CAP.SPRINK PO SCH (17:17)
[2017-10-01] MEDS: TAMSULOSIN 0.4 MG CAP.SR.24H PO SCH (17:17)
[2017-10-01] MEDS: AMLODIPINE BESYLATE 5 MG TABLET PO SCH (17:17)
--- NOTE | 2017-10-01 18:22 | NUR ---
MS RN NOTES PLACED CALL TO DR. LIZ TO VERIFY PLAN FOR METOPROLOL. PER DR. LIZ, DC METOPROLOL AT THIS TIME AND CONTINUE TO MONITOR HR. ORDER NOTED AND CARRIED OUT. PATIENT MADE AWARE AND VERBALIZED UNDERSTANDING. WILL CONTINUE TO MONITOR
--- NOTE | 2017-10-01 18:23 | NUR ---
MS RN NOTES PATIENT RESTING INSIDE ROOM. AWAKE, ALERT AND ORIENTED X 4. VERBALLY RESPONSIVE AND RESPONDS TO VERBAL AND TACTILE STIMULI. BREATHING EVEN AND UNLABORED. WITH COMPLAIN OF SOB WITH EXERTION OR WHEN LYING FLAT ON BED. PATIENT CURRENTLY SITTING ON GERICHAIR, NO ACUTE DISTRESS NOTED. PATIENT DENIES ANY PAIN OR DISCOMFORT. NO CHANGES IN LOC NOTED AT THIS TIME. PATIENT CALM AND RELAXED. PATIENT REMAINS AFEBRILE, SKIN DRY AND WARM TO TOUCH. IV INTACT AND PATENT, NO SWELLING OR BLEEDING ON IV SITE. WILL ENDORSE TO INCOMING SHIFT FOR BHARAT. AT BEDSIDE. PATIENT KEPT CLEAN, DRY AND COMFORTABLE. ALL NURSING NEEDS ATTENDED AND MET. CALL LIGHT WITHIN REACH.
--- NOTE | 2017-10-01 19:30 | NUR ---
MS/RN OPENING NOTES PT RECEIVED AWAKE, SITTING UP IN BED. AT BEDSIDE. ON 3L O2 VIA NC, BREATHING EVEN AND UNLABORED AT THIS TIME. NOT IN ACUTE DISTRESS. WITH SOB UPON EXERTION. IV TO RAC PATENT AND INTACT. BED IN LOW/LOCKED POSITION WITH CALL LIGHT IN REACH. UPPER SIDE RAILS UPX2. WILL CONTINUE TO MONITOR
--- NOTE | 2017-10-01 22:32 | NUR ---
MS/RN NOTES SPOKE TO JORDAN LAYTON, NOTIFIED HIM OF BLOOD GLUCOSE 214 AND PT DOES NOT HAVE INSULIN ORDERED. WILL TAKE A LOOK AT CHART AND INPUT ORDERS NECESSARY
[2017-10-01] MEDS: *INSULIN REGULAR(HUMULIN R)HUM 100 UNIT/ML VIAL SQ PRN (22:55)
[2017-10-01] MEDS ORDERED: DEXTROSE 50%-WATER 50 ML DISP.SYRIN IV PRN (23:00)
[2017-10-01] MEDS: ZOLPIDEM TARTRATE 5 MG TABLET PO PRN (23:01)
[2017-10-02] MEDS: IPRATROPIUM NEB FS 0.5 MG/2.5 ML AMPUL.NEB NEB PRN (00:23)
[2017-10-02 03:28] LABS: ABG BASE EXCESS -1.1 mmol/L; ABG OXYGEN SATURATION 96.1 % (92.0-98.5); ABG PCO2 29.8 mmHg (35.0-45.0); ABG PH 7.483 (7.350-7.450); ABG PO2 90.8 mmHg (75.0-100.0); AaDO2 102.5 mmHg; COHb 0.3 % (0.5-1.5); MetHb 0.3 % (0.0-1.5); O2Hb 95.5 % (94.0-97.0); SITE, ABG Right Radial; VENT MODE, BG nasal cannula
--- NOTE | 2017-10-02 03:30 | NUR ---
MS/RN NOTES PT WITH INCREASING SOB AND NOW WITH WHEEZING. BP 151/69, HR 139, RR 30, 99% ON 3L O2. PT STATES "I DO NOT FEEL GOOD, I FEEL LIKE I AM GOING DOWN". AUTOMOTIVE STARTER REPAIRER NOTIFIED; DIRECTOR INTERNAL COMMUNICATIONS, ED CAME TO ASSESS PT. NOTIFIED MD, STAT ABG ORDERED AND REVIEWED OVER THE PHONE. WILL INPUT ORDERS
[2017-10-02] MEDS ORDERED: FUROSEMIDE 40 MG/4 ML VIAL IV ONE (04:00)
--- NOTE | 2017-10-02 04:00 | NUR ---
MS/RN NOTES OKAY TO CHANGE ATROVENT Q4H SCHEDULED AND ADD 0.63MG XOPENEX Q4H SCHEDULED. ORDERS NOTED AND CARRIED OUT.
--- NOTE | 2017-10-02 04:18 | NUR ---
MS/RN NOTES PT ASKED TO HAVE HIS SUGAR CHECKED. RESULT= 164. WILL RECHECK IN AM
[2017-10-02] MEDS: VANCOMYCIN 0.75 GM in IV D5W 250 ML IV SCH ×2 (04:26→16:15)
[2017-10-02] MEDS: LEVALBUTEROL HCL NEB 1.25 MG/0.5 ML VIAL.NEB NEB SCH ×5 (04:50→19:36)
[2017-10-02] MEDS: IPRATROPIUM NEB FS 0.5 MG/2.5 ML AMPUL.NEB NEB SCH ×5 (04:50→19:36)
[2017-10-02] MEDS: BLOOD SUGAR DIAGNOSTIC 1 EACH STRIP IN SCH ×4 (06:39→21:31)
[2017-10-02] MEDS: INSULIN REGULAR, HUMAN 100 UNIT/ML 3 ML VIAL SQ PRN ×3 (06:42→17:19)
--- NOTE | 2017-10-02 06:49 | NUR ---
MS/RN CLOSING NOTES PT RESTING IN BED. AROUSABLE TO NAME. REMAINS ON 3L O2 VIA NC, BREATHING EVEN AND UNLABORED, NO SOB AT THIS TIME. DENIES PAIN. STATES HE "FEELS A LITTLE BETTER NOW". NO MORE WHEEZING AFTER BREATHING TX. HOB ELEVATED FOR MAXIMUM LUNG EXPANSION. IV TO RAC PATENT AND INTACT. BLOOD SUGAR 211, COVERED WITH 8UNITS OF INSULIN. KEPT PT COMFORTABLE POSSIBLE AND EDUCATED ON ENERGY CONSERVATION AND BREATHING TECHNIQUES. BED IN LOW/LOCKED POSITION WITH CALL LIGHT IN REACH AND UPPER SIDE RAILS UPX2. WILL ENDORSE TO DAY SHIFT RN BHARAT.
--- NOTE | 2017-10-02 07:20 | NUR ---
MS/RN OPENING NOTE PATIENT IN BED AND AWAKE. ALERT AND ORIENTED X3. DENIES SOB. RESPIRATION REGULAR AND UNLABORED. DENIES PAIN. PATIENT IN NASAL CANNULA AT 2L/MIN. RAC G 18 PATENT AND SALINE LOCKED. BED LOW AND LOCKED. SIDE RAILS UP X3. CALL LIGHT WITHIN REACH. WILL CONTINUE TO MONITOR.
[2017-10-02 07:58] VITALS: BP 149/69
[2017-10-02 08:00] VITALS: BP 149/69
[2017-10-02 08:02] LABS: BASOPHILS % (AUTO) 0.1 % (0.0-2.0); EOSINOPHILS % (AUTO) 0.8 % (0.0-6.0); HEMATOCRIT 26 % (39-51); HEMOGLOBIN 8.7 g/dL (13.5-17.5); LYMPHOCYTES # (AUTO) 0.6 /CMM (0.8-4.8); LYMPHOCYTES % (AUTO) 5.8 % (20.0-44.0); MEAN CORPUSCULAR HEMOGLOBIN 30 PG (26.0-33.0); MEAN CORPUSCULAR HGB CONC 34 g/dl (31.0-36.0); MEAN CORPUSCULAR VOLUME 90 fL (80-96); MONOCYTES # (AUTO) 1.1 /CMM (0.1-1.30); MONOCYTES % (AUTO) 9.8 % (2.0-12.0); NEUTROPHILS # (AUTO) 9.3 /CMM (1.8-8.9); NEUTROPHILS % (AUTO) 83.5 % (43.0-81.0); PLATELET COUNT (AUTO) 242 /CMM (150-450); RDW COEFFICIENT OF VARIATION 14.4 (11.5-15.0); RED BLOOD CELL COUNT(AUTO) 2.89 MIL/uL (4.5-6.0); WHITE BLOOD COUNT (AUTO) 11.1 K/uL (4.3-11.0)
[2017-10-02 08:07] LABS: CALCIUM, SERUM 7.7 mg/dL (8.5-10.1); CARBON DIOXIDE 24 mmol/L (21-32); CHLORIDE 88 mmol/L (98-107); CREATININE 1.2 mg/dL (0.6-1.3); GLUCOSE 196 mg/dL (74-106); PHOSPHORUS 3.3 mg/dL (2.5-4.9); POTASSIUM 3.7 mmol/L (3.5-5.1); SODIUM SERUM 123 mmol/L (136-145); UREA NITROGEN, BLOOD 11 mg/dL (7-18)
[2017-10-02] MEDS: LISINOPRIL (20MG) 20 MG TABLET PO SCH (08:58)
[2017-10-02] MEDS: LACTOBACILLUS RHAMNOSUS GG 1 EACH CAP.SPRINK PO SCH ×2 (08:58→17:21)
[2017-10-02] MEDS: ATORVASTATIN 10 MG TABLET PO SCH (08:58)
[2017-10-02] MEDS: ALLOPURINOL 100 MG TABLET PO SCH (08:58)
[2017-10-02] MEDS: MULTIVIT, IRON, MIN NO. 8, FA 1 TAB PO SCH (08:58)
[2017-10-02] MEDS: ASPIRIN EC 81 MG TABLET.DR PO SCH (08:58)
[2017-10-02] MEDS: AMMONIUM LACTATE 227 GM BOTTLE TP SCH ×2 (09:04→17:26)
--- NOTE | 2017-10-02 09:43 | NUR ---
MS/RN NOTE PATIENT IS SEEN AND EXAMINED BY DR LIZ WITH NEW ORDER OF IV FLUID. THE ORDER IS READ BACK, VERIFIED. NOTED AND CARRIED OUT.
[2017-10-02] MEDS ORDERED: IV NS 0.9% 1,000 ML BAG IV PRN (10:00)
[2017-10-02 10:29] LABS: THYROID STIMULATING HORMONE 0.806 uIU/mL (0.358-3.74); URIC ACID 4.3 mg/dL (2.6-7.2)
[2017-10-02] MEDS ORDERED: IV NS 0.9% 1,000 ML IV PRN (10:30)
[2017-10-02] MEDS: CEFEPIME 2 GM in IV D5W 100 ML IV SCH ×2 (12:37→23:40)
[2017-10-02] MEDS: ACETAMINOPHEN 325 MG TABLET PO PRN (15:41)
--- NOTE | 2017-10-02 15:41 | NUR ---
MS/RN NOTE PATIENT TEMP 100.3 AND TYLENOL 650 MG PO GIVEN.
--- NOTE | 2017-10-02 16:00 | NUR ---
MS/RN NOTE TEMP 98.9. PATIENT IN NO APPARENT DISTRESS.
[2017-10-02] MEDS: AMLODIPINE BESYLATE 5 MG TABLET PO SCH (17:21)
[2017-10-02] MEDS: TAMSULOSIN 0.4 MG CAP.SR.24H PO SCH (17:21)
--- NOTE | 2017-10-02 18:04 | NUR ---
MS/RN CLOSING NOTE PATIENT ALERT AND ORIENTED X3. DENIES SOB. RESPIRATION REGULAR AND UNLABORED. DENIES PAIN. PATIENT IS RECEIVING OXYGEN AT 3L/MIN VIA NASAL CANULA AND SATURATION IS AT 96%. PATIENT IS ON FLUID RESTRICTION AND COMPLIANT. RAC G 18 PATENT AND SALINE LOCKED. GOOD AND GENTLE SKIN CARE RENDERED. KEPT CLEAN, DRY AND COMFORTABLE. ALL NEEDS ATTENDED AND ANTICIPATED. CALL LIGHT WITHIN REACH. WILL ENDORSE TO MASTER PLUMBER.
--- NOTE | 2017-10-02 19:45 | NUR ---
MS RN OPENING NOTES RECEIVED REPORT FROM AM RN. PATIENT A/A/O X3, ABLE TO MAKE NEEDS KNOWN. BREATHING EVEN & UNLABORED, TOLERATING ROOM AIR. DENIES ANY SOB OR DIFFICULTY BREATHING. PULSES PRESENT AND SKIN WARM, DRY & INTACT. RIGHT AC IV #18 INTACT & PATENT W/ DRESSING CDI, SALINE LOCKED. DENIES ANY PAIN OR DISCOMFORT @ THIS TIME. SAFETY MEASURES IN PLACE W/ BED ALARM ON & CALL LIGHT WITHIN REACH. INSTRUCTED TO CALL FOR ASSISTANCE. WILL CONTINUE TO MONITOR.
[2017-10-02 20:00] VITALS: BP 128/71
[2017-10-02] MEDS: INSULIN GLARGINE, 100 UNIT/ML CARTRIDGE SQ SCH (21:32)
[2017-10-02] MEDS: *INSULIN REGULAR(HUMULIN R)HUM 100 UNIT/ML VIAL SQ PRN (21:34)
[2017-10-02] MEDS: MAGNESIUM HYDROXIDE 30 ML UDC PO PRN (23:40)
[2017-10-03] MEDS: IPRATROPIUM NEB FS 0.5 MG/2.5 ML AMPUL.NEB NEB SCH ×7 (00:04→23:50)
[2017-10-03] MEDS: LEVALBUTEROL HCL NEB 1.25 MG/0.5 ML VIAL.NEB NEB SCH ×7 (00:04→23:51)
[2017-10-03] MEDS: VANCOMYCIN 0.75 GM in IV D5W 250 ML IV SCH ×2 (03:53→16:32)
[2017-10-03 06:03] LABS: URINE SODIUM, RANDOM 37 mmol/l (40-220)
[2017-10-03 06:14] LABS: OSMOLALITY,URINE 439 mOS/kg (340-1090)
[2017-10-03] MEDS: BLOOD SUGAR DIAGNOSTIC 1 EACH STRIP IN SCH ×4 (06:50→21:23)
[2017-10-03] MEDS: INSULIN REGULAR, HUMAN 100 UNIT/ML 3 ML VIAL SQ PRN ×3 (06:54→17:33)
--- NOTE | 2017-10-03 07:15 | NUR ---
RN NOTES PATIENT ASLEEP BUT RESPONSIVE TO VERBAL STIMULI. NO SHORTNESS OF BREATH NOTED, DENIES PAIN OR DISCOMFORT, KEPT COMFORTABLE, NEEDS ATTENDED, CALL LIGHT WITHIN REACH, WILL CONTINUE TO MONITOR.
[2017-10-03 07:27] LABS: CALCIUM, SERUM 7.2 mg/dL (8.5-10.1); CARBON DIOXIDE 26 mmol/L (21-32); CHLORIDE 86 mmol/L (98-107); CREATININE 1.1 mg/dL (0.6-1.3); GLUCOSE 164 mg/dL (74-106); POTASSIUM 3.8 mmol/L (3.5-5.1); UREA NITROGEN, BLOOD 14 mg/dL (7-18)
[2017-10-03 07:43] LABS: SODIUM SERUM 118 mmol/L (136-145)
[2017-10-03 08:00] VITALS: BP 141/74
[2017-10-03] MEDS: MULTIVIT, IRON, MIN NO. 8, FA 1 TAB PO SCH (08:43)
[2017-10-03] MEDS: ASPIRIN EC 81 MG TABLET.DR PO SCH (08:43)
[2017-10-03] MEDS: ALLOPURINOL 100 MG TABLET PO SCH (08:43)
[2017-10-03] MEDS: ATORVASTATIN 10 MG TABLET PO SCH (08:43)
[2017-10-03] MEDS: LACTOBACILLUS RHAMNOSUS GG 1 EACH CAP.SPRINK PO SCH ×2 (08:43→16:32)
[2017-10-03] MEDS: AMMONIUM LACTATE 227 GM BOTTLE TP SCH ×2 (08:44→16:37)
[2017-10-03] MEDS: LISINOPRIL (20MG) 20 MG TABLET PO SCH (08:44)
[2017-10-03] MEDS ORDERED: FUROSEMIDE 40 MG/4 ML VIAL IV ONE (12:00)
[2017-10-03] MEDS: CEFEPIME 2 GM in IV D5W 100 ML IV SCH ×2 (12:01→23:11)
[2017-10-03] MEDS: SODIUM CHLORIDE 1000 MG TABLET.SOL PO SCH ×2 (12:11→21:23)
[2017-10-03 16:00] VITALS: BP 141/73
[2017-10-03] MEDS: TAMSULOSIN 0.4 MG CAP.SR.24H PO SCH (17:33)
[2017-10-03] MEDS: AMLODIPINE BESYLATE 5 MG TABLET PO SCH (17:35)
--- NOTE | 2017-10-03 18:22 | NUR ---
RN CLOSING NOTES PATIENT A/OX3, SHORTNESS OF BREATH NOTED DURING ACTIVITY, DENIES PAIN OR DISCOMFORT AT THIS TIME, ALL DUE MEDS GIVEN, NO DISTRESS NOTED, FLUID RESTRICTION OBSERVED, KEPT COMFORTABLE, NEEDS ATTENDED AND MET, CALL LIGHT WITHIN REACH, WILL ENDORSE TO SPEED WINDER FOR BHARAT.
--- NOTE | 2017-10-03 19:29 | NUR ---
MS RN OPENING NOTES: RECEIVED PT IN BED AND IS SITTING UP IN HIGH SCOTT'S POSITION WITH 2LPM VIA NC ON. FAMILY MEMBER AT BEDSIDE. IV REMAINS INTACT. CURRENTLY H/L. CALL LIGHT WITHIN PT'S REACH. BED KEPT IN LOW, LOCKED POSITION, AND SIDE RAILS X 2UP. WILL CONTINUE TO MONITOR PT.
[2017-10-03 20:41] VITALS: BP 143/87
[2017-10-03] MEDS: ALBUTEROL FS 2.5 MG/3 ML VIAL.NEB NEB PRN (20:43)
[2017-10-03] MEDS: *INSULIN REGULAR(HUMULIN R)HUM 100 UNIT/ML VIAL SQ PRN (21:31)
[2017-10-03] MEDS: INSULIN GLARGINE, 100 UNIT/ML CARTRIDGE SQ SCH (21:32)
[2017-10-03] MEDS: ZOLPIDEM TARTRATE 5 MG TABLET PO PRN (22:35)
--- NOTE | 2017-10-03 22:37 | NUR ---
MS RN NOTES: PT REQUESTING FOR SLEEPING AID. PT WAS ADMINISTERED AMBIEN 5MG PO. WILL CONTINUE TO MONITOR PT.
--- NOTE | 2017-10-03 22:48 | NUR ---
MS RN NOTES: CALLED NURS SUP, [facility], ICU, [facility] FOR BLADDER SCANNER. NOWHERE TO BE FOUND. CALLED ER [facility], NO BLADDER SCANNER.
--- NOTE | 2017-10-03 22:51 | NUR ---
MS RN NOTES: CALLED [facility] TO SEE FOR BLADDER SCANNER. NOT AVAILABLE RIGHT NOW.
--- NOTE | 2017-10-04 00:30 | NUR ---
MS RN NOTES: PT SAYING HE HAS THE URGE TO PEE. PT VERBALIZED HE WAS ABLE TO URINATE EARLIER DURING THE DAY. BLADDER SCAN PERFORMED AND SCANNER SHOWS 87ML. WILL MONITOR FOR NOW.
--- NOTE | 2017-10-04 02:49 | NUR ---
MS RN NOTES: BLADDER SCAN PERFORMED. 123ML RETAINING. WILL MONITOR ACCORDINGLY. CHARGE NURSE ROBY.
[2017-10-04] MEDS: VANCOMYCIN 0.75 GM in IV D5W 250 ML IV SCH ×3 (03:05→21:06)
[2017-10-04] MEDS: LEVALBUTEROL HCL NEB 1.25 MG/0.5 ML VIAL.NEB NEB SCH ×7 (03:56→22:51)
[2017-10-04] MEDS: IPRATROPIUM NEB FS 0.5 MG/2.5 ML AMPUL.NEB NEB SCH ×6 (03:57→22:51)
[2017-10-04] MEDS ORDERED: TAMSULOSIN 0.4 MG CAP.SR.24H PO ONE (05:30)
[2017-10-04 06:22] LABS: BASOPHILS % (AUTO) 0.1 % (0.0-2.0); EOSINOPHILS % (AUTO) 0.5 % (0.0-6.0); HEMATOCRIT 26 % (39-51); HEMOGLOBIN 8.8 g/dL (13.5-17.5); LYMPHOCYTES # (AUTO) 0.4 /CMM (0.8-4.8); LYMPHOCYTES % (AUTO) 3.3 % (20.0-44.0); MEAN CORPUSCULAR HEMOGLOBIN 30 PG (26.0-33.0); MEAN CORPUSCULAR HGB CONC 33 g/dl (31.0-36.0); MEAN CORPUSCULAR VOLUME 90 fL (80-96); MONOCYTES # (AUTO) 1.1 /CMM (0.1-1.30); MONOCYTES % (AUTO) 8.6 % (2.0-12.0); NEUTROPHILS # (AUTO) 10.9 /CMM (1.8-8.9); NEUTROPHILS % (AUTO) 87.5 % (43.0-81.0); PLATELET COUNT (AUTO) 289 /CMM (150-450); RDW COEFFICIENT OF VARIATION 14.8 (11.5-15.0); RED BLOOD CELL COUNT(AUTO) 2.94 MIL/uL (4.5-6.0); WHITE BLOOD COUNT (AUTO) 12.4 K/uL (4.3-11.0)
[2017-10-04] MEDS: BLOOD SUGAR DIAGNOSTIC 1 EACH STRIP IN SCH ×4 (06:25→22:07)
[2017-10-04] MEDS: INSULIN REGULAR, HUMAN 100 UNIT/ML 3 ML VIAL SQ PRN ×3 (06:25→17:18)
--- NOTE | 2017-10-04 06:35 | NUR ---
MS RN NOTES: BLOOD SUGAR WAS 250. 8 UNITS OF INSULIN WAS ADMINISTERED. SNACK WAS PROVIDED. WILL CONTINUE TO MONITOR PT.
[2017-10-04 06:43] LABS: CALCIUM, SERUM 7.7 mg/dL (8.5-10.1); CARBON DIOXIDE 27 mmol/L (21-32); CHLORIDE 83 mmol/L (98-107); CREATININE 1.3 mg/dL (0.6-1.3); GLUCOSE 244 mg/dL (74-106); MAGNESIUM 2.2 mg/dL (1.8-2.4); PHOSPHORUS 3.6 mg/dL (2.5-4.9); POTASSIUM 4.1 mmol/L (3.5-5.1); UREA NITROGEN, BLOOD 19 mg/dL (7-18)
--- NOTE | 2017-10-04 06:46 | NUR ---
MS RN CLOSING NOTES: PT ASLEEP AT THIS TIME AND IS SITTING UP IN HIGH SCOTT'S POSITION IN BED. PT IS ON 2LPM VIA NC AND IS TOLERATING WELL. IV REMAINS INTACT. CURRENTLY H/L. CALL LIGHT WITHIN PT'S REACH. BED KEPT IN LOW, LOCKED POSITION, AND SIDE RAILS X 2 UP. WILL ENDORSE TO AM NURSE FOR BHARAT.
[2017-10-04 06:49] LABS: SODIUM SERUM 118 mmol/L (136-145)
--- NOTE | 2017-10-04 06:50 | NUR ---
MS RN NOTES: RECEIVED CALL FROM LAB [facility] FOR SODIUM 118. WILL ENDORSE TO AM NURSE.
--- NOTE | 2017-10-04 07:31 | NUR ---
MS RN OPENING NOTES RECEIVED PATIENT AWAKE IN BED IN NO ACUTE SIGNS OF DISTRESS. A/O X3, ABLE TO MAKE NEEDS KNOWN, NO C/O PAIN OR DISCOMFORTS VOICED AT THIS TIME. ON 02 VIA N/C @ 2LPM, BREATHING EVEN & UNLABORED. DENIES ANY SOB. IV ACCESS ON LFA INTACT & PATENT W/ DRESSING C/D/I, SALINE LOCKED. SAFETY MEASURES IN PLACE. BED IN LOW LOCKED POSITION W/ BED ALARM ON & CALL LIGHT WITHIN REACH. INSTRUCTED TO CALL FOR ASSISTANCE. WILL CONTINUE TO MONITOR.
[2017-10-04 08:00] VITALS: BP 159/76
[2017-10-04] MEDS: MULTIVIT, IRON, MIN NO. 8, FA 1 TAB PO SCH (09:07)
[2017-10-04] MEDS: SODIUM CHLORIDE 1000 MG TABLET.SOL PO SCH (09:07)
[2017-10-04] MEDS: LISINOPRIL (20MG) 20 MG TABLET PO SCH (09:07)
[2017-10-04] MEDS: LACTOBACILLUS RHAMNOSUS GG 1 EACH CAP.SPRINK PO SCH ×2 (09:08→17:10)
[2017-10-04] MEDS: ALLOPURINOL 100 MG TABLET PO SCH (09:08)
[2017-10-04] MEDS: ASPIRIN EC 81 MG TABLET.DR PO SCH (09:08)
[2017-10-04] MEDS: ATORVASTATIN 10 MG TABLET PO SCH (09:08)
[2017-10-04] MEDS: AMMONIUM LACTATE 227 GM BOTTLE TP SCH ×2 (10:04→17:13)
[2017-10-04] MEDS: CEFEPIME 2 GM in IV D5W 100 ML IV SCH (11:45)
--- NOTE | 2017-10-04 13:02 | NUR ---
RN NOTES PATIENT COMPLAINTS THAT HE DIDN'T URINATE SINCE LAST NIGHT. DR LIZ MADE AWARE WITH ORDER TO DO BLADDER SCAN TO CHECK FOR URINE RETENTION. PT NOTED ON THE SCAN WITH 720ML URINE. STRAIGHT CATHETERIZATION DONE X 1 WITH 700ML URINE OUTPUT NOTED. DR LIZ MADE AWARE, SAME INFORMED THAT PT HAS SOB ON EXERTION. MADE AWARE WITH NO NEW ORDER MADE AND SAID THAT TO CLOSELY MONITOR PT.'S STATUS.
[2017-10-04] MEDS: FUROSEMIDE 40 MG/4 ML VIAL IV SCH ×2 (15:55→23:58)
[2017-10-04 16:00] VITALS: BP 130/65
--- NOTE | 2017-10-04 16:03 | NUR ---
RN NOTES/IV VANCO VANCO TROUGH LEVEL THIS AFTERNOON IS HIGH 21. ANTIBIOTIC VANCOMYCIN 0.75 GM IV NOT AMININISTRED. WILL CONTINUE TO MONITOR
--- NOTE | 2017-10-04 16:16 | NUR ---
RN NOTES PT SEEN BY BY SABINA LOW WITH ORDER TO GIVE LASIX 4OMG/4ML Q 8HRS, BLOOD WORKS AND CRX TOMORROW MORNING AND TO INSERT BE CATHETER. WILL CARRY OUT ORDERS.
--- NOTE | 2017-10-04 16:24 | NUR ---
RN NOTES RECEIVED CALL FROM PHARMACIST SUSANA VASQUEZ TO ENDORSED TO SENIOR DATABASE PROGRAMMER NURSE TO GIVE VANCOMYCIN 0.75 GM IV TONIGHT AT 2100 BECAUSE 1600 DOSE TODAY WAS HELD DUE TO SLIGHTLY HIGH VANCO TROUGH LEVEL OF 21. WILL CHECK VANCO TROUGH LEVEL AGAIN TOMORROW AT 1400.
[2017-10-04] MEDS: TAMSULOSIN 0.4 MG CAP.SR.24H PO SCH (17:11)
[2017-10-04] MEDS: AMLODIPINE BESYLATE 5 MG TABLET PO SCH (17:12)
--- NOTE | 2017-10-04 18:35 | NUR ---
MS RN CLOSING NOTES PATIENT AWAKE IN BED WITH AT BEDSIDE. A/O X3. ABLE TO MAKE NEEDS KNOWN. ALL DUE MEDS GIVEN ORDERED AND TOLERATED. PT ON 02 VIA N/C @ 2LPM, BREATHING EVEN & UNLABORED AT THIS TIME. IV ACCESS ON LFA INTACT & PATENT W/ DRESSING C/D/I, FLUSHES EASILY. BE CATHETER FR #[address] PATENT, NO URINE OUTPUT AT THIS TIME. ALL SAFETY MEASURES KEPT IN PLACE. HOB ELEVATED AT ALL TIMES FOR EASIER BREATHING. BED IN LOW LOCKED POSITION W/ BED ALARM ON & CALL LIGHT WITHIN REACH. INSTRUCTED TO CALL FOR ASSISTANCE. ALL NEEDS AND CARE ATTENDED WELL. WILL ENDORSE TO HUMAN GEOGRAPHY FACULTY MEMBER NURSE FOR BHARAT. .
--- NOTE | 2017-10-04 19:30 | NUR ---
MS RN OPENING NOTES: RECEIVED PT ON 3LPM VIA NC. PT IS SITTING ON BEDSIDE COMMODE. AT BEDSIDE. NO S/S OF DISTRESS. PT A/OX4. PT ABLE TO MAKE NEEDS KNOWN. RT AT BEDSIDE. CALL LIGHT WITHIN PT'S REACH. BED KEPT IN LOW, LOCKED POSITION, AND SIDE RAILS X2UP. IV REMAINS INTACT AND CURRENTLY H/L. WILL CONTINUE TO MONITOR PT.
[2017-10-04 20:00] VITALS: BP 151/75
--- NOTE | 2017-10-04 21:06 | NUR ---
MS RN NOTES: WILL HANG VANCOMYCIN 0.75GM DOSE PER ENDORSEMENT FROM AM NURSE VIA PHARMACIST PEDRO (EVEN WITH TROUGH 21).
[2017-10-04] MEDS: INSULIN GLARGINE, 100 UNIT/ML CARTRIDGE SQ SCH (22:09)
[2017-10-04] MEDS: *INSULIN REGULAR(HUMULIN R)HUM 100 UNIT/ML VIAL SQ PRN (22:10)
[2017-10-04] MEDS: ZOLPIDEM TARTRATE 5 MG TABLET PO PRN (22:17)
--- NOTE | 2017-10-04 22:18 | NUR ---
MS RN NOTES: PT REQUESTING SLEEPING AID. PT WAS ADMINISTERED AMBIEN 5MG PO. WILL CONTINUE TO MONITOR PT.
[2017-10-04 23:54] VITALS: BP 115/68
[2017-10-05] VITALS (8 sets, daily range): BP systolic 96–144; BP diastolic 56–76
[2017-10-05] MEDS: CEFEPIME 2 GM in IV D5W 100 ML IV SCH ×3 (00:02→23:30)
[2017-10-05] MEDS ORDERED: LIDOCAINE 2% JEL UROJET 10 ML MM ONE (01:30)
--- NOTE | 2017-10-05 01:30 | NUR ---
MS RN NOTES: INFORMED ADVERTISING CLERK CALIN THAT PT IS RETAINING URINE VIA BLADDER SCAN >300ML. PT ALSO HAS BPH PROBLEM AND FROM ENDORSEMENT DAY AM NURSE HAD TROUBLE INSERTING BE. LIDOCAINE HCL JELLY ORDERED PER ADVERTISING CLERK CALIN AND TO INSERT COUDE BE.
[2017-10-05] MEDS: MAGNESIUM HYDROXIDE 30 ML UDC PO PRN (02:45)
--- NOTE | 2017-10-05 02:45 | NUR ---
MS RN NOTES: PT REQUESTING FOR SOMETHING TO HELP HIM HAVE A BM. PT ADMINISTERED MOM.
[2017-10-05] MEDS: LEVALBUTEROL HCL NEB 1.25 MG/0.5 ML VIAL.NEB NEB SCH ×3 (02:48→11:30)
[2017-10-05] MEDS: IPRATROPIUM NEB FS 0.5 MG/2.5 ML AMPUL.NEB NEB SCH ×6 (02:48→23:04)
[2017-10-05 03:38] LABS: APPEARANCE,URINE CLOUDY (CLEAR); BILIRUBIN,URINE NEGATIVE (NEGATIVE); BLOOD, URINE 3+ Ery/uL (NEGATIVE); COLOR,URINE YELLOW (YELLOW); KETONES,URINE TRACE (NEGATIVE); LEUKOCYTE ESTERASE ,URINE NEGATIVE (NEGATIVE); NITRITE, URINE NEGATIVE (NEGATIVE); PH,URINE 5.5 (5.0-8.0); PROTEIN,URINE 2+ mg/dl (NEGATIVE); UGLUCOSE NEGATIVE (NEGATIVE); UROBILINOGEN,URINE 0.2 EU/dL (0.2)
[2017-10-05 03:44] LABS: RBC,URINE TOO NUMEROUS TO COUN /HPF (0-2)
[2017-10-05 03:45] LABS: BACTERIA,URINE Moderate /HPF (None Seen); SQUAMOUS EPITHELIAL CELL,UR Rare /HPF (None Seen)
[2017-10-05 03:46] LABS: URINE AMORPHOUS URATE Moderate /HPF (None Seen)
[2017-10-05 06:34] LABS: CALCIUM, SERUM 7.7 mg/dL (8.5-10.1); CARBON DIOXIDE 26 mmol/L (21-32); CHLORIDE 82 mmol/L (98-107); CREATININE 1.6 mg/dL (0.6-1.3); GLUCOSE 174 mg/dL (74-106); MAGNESIUM 2.3 mg/dL (1.8-2.4); PHOSPHORUS 3.4 mg/dL (2.5-4.9); POTASSIUM 3.8 mmol/L (3.5-5.1); UREA NITROGEN, BLOOD 26 mg/dL (7-18)
[2017-10-05 06:40] LABS: BASOPHILS % (AUTO) 0.2 % (0.0-2.0); EOSINOPHILS % (AUTO) 1.8 % (0.0-6.0); HEMATOCRIT 24 % (39-51); HEMOGLOBIN 8.1 g/dL (13.5-17.5); LYMPHOCYTES # (AUTO) 0.4 /CMM (0.8-4.8); LYMPHOCYTES % (AUTO) 3.4 % (20.0-44.0); MEAN CORPUSCULAR HEMOGLOBIN 30 PG (26.0-33.0); MEAN CORPUSCULAR HGB CONC 33 g/dl (31.0-36.0); MEAN CORPUSCULAR VOLUME 90 fL (80-96); NEUTROPHILS # (AUTO) 9.6 /CMM (1.8-8.9); NEUTROPHILS % (AUTO) 85.6 % (43.0-81.0); PLATELET COUNT (AUTO) 297 /CMM (150-450); RDW COEFFICIENT OF VARIATION 14.6 (11.5-15.0); RED BLOOD CELL COUNT(AUTO) 2.69 MIL/uL (4.5-6.0); WHITE BLOOD COUNT (AUTO) 11.2 K/uL (4.3-11.0)
[2017-10-05 06:41] LABS: SODIUM SERUM 116 mmol/L (136-145)
[2017-10-05] MEDS: BLOOD SUGAR DIAGNOSTIC 1 EACH STRIP IN SCH ×4 (06:42→22:50)
[2017-10-05] MEDS: INSULIN REGULAR, HUMAN 100 UNIT/ML 3 ML VIAL SQ PRN ×4 (06:43→23:25)
[2017-10-05] MEDS: FUROSEMIDE 40 MG/4 ML VIAL IV SCH ×3 (07:30→23:30)
--- NOTE | 2017-10-05 07:31 | NUR ---
MS RN CLOSING NOTES: ALL NEEDS WERE ATTENDED AND ANTICIPATED FOR. PT KEPT CLEAN, DRY, AND COMFORTABLE. PT ASLEEP AT THIS TIME AND RESTING COMFORTABLY. PT ON 2LPM VIA NC AND IS TOLERATING WELL. PT SITTING UP IN HIGH-SCOTT'S POSITION. PT HAS IV ON L FOREARM AND CURRENTLY H/L. PT HAS BE CATH AND IS ATTACHED TO DRAINAGE BAG WITH YELLOW URINE DRAINING. OUTPUT WAS 1,000ML. CALL LIGHT WITHIN PT'S REACH. BED KEPT IN LOW, LOCKED POSITION, AND SIDE RAILS X 2UP. ENDORSED TO AM NURSE FOR BHARAT.
--- NOTE | 2017-10-05 07:47 | NUR ---
MS RN OPENING NOTE RECEIVED PATIENT IN BED. ALERT ORIENTED X2-3, ON 2L O2 VIA NC, TOLERATING WELL. IN NO APPARENT DISTRESS OR DISCOMFORT AT THIS TIME. RESPIRATIONS EVEN AND UNLABORED. ABLE TO COMMUNICATE NEEDS. PATIENT IS INCONTINENT WITH BE CATHETER DRAINING CLEAR RAYNE URINE. FLUID RESTRICTION OF 1.5L/DAY. LEFT FOREARM 22G. SALINE LOCK. PATENT AND INTACT. PATIENT IS STABLE AT THIS TIME. ALL NEEDS ATTENDED. KEPT CLEAN AND COMFORTABLE, SAFETY MEASURES IN PLACE, BED IN LOW LOCKED POSITION, SIDE RAILS UP X2, CALL LIGHT WITHIN EASY REACH. WILL CONTINUE TO MONITOR.
--- NOTE | 2017-10-05 08:40 | NUR ---
SONJA LASJARVIS PER DR. LIZ DUE TO LOW SERUM Na LEVELS OF 116.
[2017-10-05] MEDS: AMMONIUM LACTATE 227 GM BOTTLE TP SCH ×2 (09:00→16:44)
[2017-10-05] MEDS: LISINOPRIL (20MG) 20 MG TABLET PO SCH (09:00)
--- NOTE | 2017-10-05 09:05 | NUR ---
CALLED DR. MUHAMMAD's OFFICE TO NOTIFY REGARDING PATIENT'S RECENT CRITICAL LAB VALUES. AWAITING FOR CALL BACK AT THIS TIME.
[2017-10-05] MEDS: LACTOBACILLUS RHAMNOSUS GG 1 EACH CAP.SPRINK PO SCH ×2 (09:11→16:44)
[2017-10-05] MEDS: ASPIRIN EC 81 MG TABLET.DR PO SCH (09:11)
[2017-10-05] MEDS: ALLOPURINOL 100 MG TABLET PO SCH (09:11)
[2017-10-05] MEDS: ATORVASTATIN 10 MG TABLET PO SCH (09:11)
[2017-10-05] MEDS: MULTIVIT, IRON, MIN NO. 8, FA 1 TAB PO SCH (09:11)
--- NOTE | 2017-10-05 09:15 | NUR ---
MEDICATION LAC-HYDRIN IS NOT AVAILABLE IN THE UNIT. NOTIFIED PHARMACY. WILL WAIT FOR THE MEDICATION TO BE DELIVERED TO ADMINISTER.
[2017-10-05] MEDS: methylPREDNISolone SOD SUCC 125 MG/2ML VIAL IV SCH (12:53)
--- NOTE | 2017-10-05 13:40 | NUR ---
2ND ATTEMPT MADE TO CONTACT DR. MUHAMMAD. WAITING FOR A CALL BACK. PATIENT WITH SOB, WHEEZING, WILL CONTINUE TO MONITOR AT THIS TIME.
--- NOTE | 2017-10-05 14:13 | NUR ---
DR. MUHAMMAD INSTRUCTED TO GIVE THE NEXT SCHEDULED LASIX NOW. PATIENT'S BP IS 152/59, HR: 131 O2 SAT 96%. PATIENT HAS AUDITORY WHEEZING. DIFFICULTY BREATHING ON 3L O2 VIA NC. HOB IS ELEVATED. WILL CONTINUE TO MONITOR UNTIL DR. MUHAMMAD ARRIVES.
--- NOTE | 2017-10-05 15:15 | NUR ---
VERBAL ORDER RECEIVED FROM DR. YOLANDA MUHAMMAD TO START THE PATIENT ON 3% SALINE IV AT 20CC/HR PRN. ORDER READ BACK AND VERIFIED. PHARMACY CONTACTED TO DELIVER THE MEDICATION. WILL ADMINISTER SOON IT IS AVAILABLE.
[2017-10-05] MEDS ORDERED: IV Sodium Chloride 3% 500 ML 500 ML IV PRN (15:30)
[2017-10-05 15:38] LABS: ABG BASE EXCESS 3.6 mmol/L; ABG OXYGEN SATURATION 95.5 % (92.0-98.5); ABG PCO2 35.4 mmHg (35.0-45.0); ABG PH 7.498 (7.350-7.450); ABG PO2 84.9 mmHg (75.0-100.0); AaDO2 101.8 mmHg; COHb 0.3 % (0.5-1.5); MetHb 0.5 % (0.0-1.5); O2Hb 94.7 % (94.0-97.0); SITE, ABG Right Radial; VENT MODE, BG NASAL CANNULA 32%
[2017-10-05] MEDS: ALBUTEROL FS 2.5 MG/0.5 ML VIAL.NEB NEB SCH ×2 (15:50→23:04)
--- NOTE | 2017-10-05 16:29 | NUR ---
MEDICATION VANCOMYCIN IS NOT AVAILABLE IN THE UNIT. CONTACTED PHARMACY 3 TIMES. WAITING FOR THE MEDICATION TO BE DELIVERED AT THIS TIME. WILL ADMINISTER SOON IT IS AVAILABLE.
[2017-10-05] MEDS: AMLODIPINE BESYLATE 5 MG TABLET PO SCH (17:07)
[2017-10-05] MEDS: TAMSULOSIN 0.4 MG CAP.SR.24H PO SCH (17:07)
[2017-10-05] MEDS: VANCOMYCIN 0.75 GM in IV D5W 250 ML IV SCH (17:08)
--- NOTE | 2017-10-05 17:30 | NUR ---
RECEIVED REPORT FOR CRITICAL LAB VALUE OF Na: 113. REPORTED TO DR. MUHAMMAD. INSTRUCTED TO CONTINUE 3% SALINE INFUSION AT 20CC/HR AT THIS TIME. WILL CONTINUE TO MONITOR.
--- NOTE | 2017-10-05 18:00 | NUR ---
RECEIVED VERBAL ORDER FROM DR. LIZ TO TRANSFER THE PATIENT TO ICU DUE TO DECREASED NX LEVELS AND Q6HR BNP CHECK. WILL CARRY OUT ORDERS.
--- NOTE | 2017-10-05 18:45 | NUR ---
PATIENT IS BEING TRANSFERRED TO ICU ROOM 252. GAVE REPORT TO ELINA.
--- NOTE | 2017-10-05 19:05 | NUR ---
DURING TRANSFER NO CHANGES NOTED. BELONGINGS SENT WITH PATIENT.
--- NOTE | 2017-10-05 19:05 | NUR ---
MS CHURCH ORGANIST NOTE PATIENT WAS TRANSFER TO ICU UNIT 252. PATIENT IN BED. ALERT ORIENTED X2-3. IN NO APPARENT DISTRESS OR DISCOMFORT AT THIS TIME. RESPIRATIONS EVEN AND UNLABORED. ABLE TO COMMUNICATE NEEDS. BE CATHETER IN PLACE. FLUID RESTRICTION OF 1.5L/DAY. LEFT FOREARM 22G WITH HYPERTONIC SOLUTION RUNNING AT 20CC/HR. PATENT AND INTACT. NO SIGN OF INFILTRATION. PATIENT IS STABLE AT THIS TIME. PATIENT IS CLEAN AND COMFORTABLE. ALL BELONGINGS ARE TRANSFERRED WITH THE PATIENT. ACCOMPANIED BY RN, SOCIAL WORK COORDINATOR AND PATIENT'S . ALL DUE MEDICATIONS GIVEN BEFORE THE TRANSFER. PATIENT MADE COMFORTABLE IN ROOM. O2 CONNECTED AT 2L. ENDORSED TO ICU NURSE ELINA FOR BHARAT.
--- NOTE | 2017-10-05 19:15 | NUR ---
OFFICE ASSISTANT RECEPTIONIST RCD PT FROM MED SURG W/DX HYPONATREMIA. PT A/O x3. FRIEND AT BEDSIDE. ST 120. PLACED ON O2 2L VIA NC. SKIN INTACT. LFA 22 G W/3% SODIUM CHLORIDE @ 20 ML/HR W/ ORDERS TO DO MP Q6HRS.
--- NOTE | 2017-10-05 19:18 | NUR ---
MS RN OPENING NOTE RECEIVE PATIENT AWAKE IN BED, A/O X 2- 3, NO SOB OR DISTRESS NOTED, CALL LIGHT WITHIN REACH. SAFETY MEASURES IMPLEMENTED. WILL CONTINUE TO MONITOR THROUGHOUT SHIFT. Addendum: 10/05/17 at 1925 by YOANA AGOSTO RN ADDENDUM: MISTAKEN ENTRY: PLS DISREGARD THIS DOCUMENTATION THIS IS FOR DIFFERENT PATIENT
--- NOTE | 2017-10-05 19:30 | NUR ---
APPRENTICE JOCKEY CALLED MED SURG TO ASK NURSE TO BRING PTS MEDICATION, CHART, DO PROCESS TRANSFER AND DOCUMENT I&O. UNABLE TO SPEAK WITH NURSE PER DESIZING PAD OPERATOR THEY ARE IN REPORT. TEN MINUTES LATER ABLE TO SPEAK WITH CHARGE NURSE.
--- NOTE | 2017-10-05 20:30 | NUR ---
DEALER SUPPORT TECHNICIAN NURSING COMBINATION MACHINE TOOL OPERATOR S/W MED SURG STAFF TO INPUT I&O FOR PT.
--- NOTE | 2017-10-05 22:50 | NUR ---
RAW JUICE WEIGHER GLUCOSE 210; INSULIN GIVEN. PT GIVEN A SNACK.
[2017-10-05] MEDS: INSULIN GLARGINE, 100 UNIT/ML CARTRIDGE SQ SCH (22:51)
[2017-10-05 23:29] LABS: CALCIUM, SERUM 7.7 mg/dL (8.5-10.1); CARBON DIOXIDE 29 mmol/L (21-32); CHLORIDE 84 mmol/L (98-107); CREATININE 1.5 mg/dL (0.6-1.3); GLUCOSE 212 mg/dL (74-106); POTASSIUM 4.4 mmol/L (3.5-5.1); UREA NITROGEN, BLOOD 25 mg/dL (7-18)
--- NOTE | 2017-10-05 23:30 | NUR ---
MANAGER LOGISTIC SODIUM 118; RELAYED RESULTS TO DR ADAMS NO NEW ORDERS RECEIVED. CONTINUE TO MONITOR.
[2017-10-05 23:33] LABS: SODIUM SERUM 118 mmol/L (136-145)
[2017-10-06] VITALS (19 sets, daily range): BP systolic 97–140; BP diastolic 54–98
[2017-10-06] MEDS: IPRATROPIUM NEB FS 0.5 MG/2.5 ML AMPUL.NEB NEB SCH ×6 (02:49→23:30)
[2017-10-06] MEDS: INSULIN REGULAR, HUMAN 100 UNIT/ML 3 ML VIAL SQ PRN ×4 (03:50→18:02)
[2017-10-06 04:44] LABS: HEMATOCRIT 23 % (39-51); HEMOGLOBIN 7.8 g/dL (13.5-17.5); LYMPHOCYTES # (AUTO) 0.3 /CMM (0.8-4.8); LYMPHOCYTES % (AUTO) 3.1 % (20.0-44.0); MEAN CORPUSCULAR HEMOGLOBIN 30 PG (26.0-33.0); MEAN CORPUSCULAR HGB CONC 34 g/dl (31.0-36.0); MEAN CORPUSCULAR VOLUME 89 fL (80-96); MONOCYTES # (AUTO) 0.2 /CMM (0.1-1.30); NEUTROPHILS # (AUTO) 10.3 /CMM (1.8-8.9); NEUTROPHILS % (AUTO) 94.9 % (43.0-81.0); PLATELET COUNT (AUTO) 262 /CMM (150-450); RDW COEFFICIENT OF VARIATION 14.8 (11.5-15.0); RED BLOOD CELL COUNT(AUTO) 2.62 MIL/uL (4.5-6.0); WHITE BLOOD COUNT (AUTO) 10.9 K/uL (4.3-11.0)
[2017-10-06 04:54] LABS: CALCIUM, SERUM 7.5 mg/dL (8.5-10.1); CARBON DIOXIDE 29 mmol/L (21-32); CHLORIDE 86 mmol/L (98-107); CREATININE 1.3 mg/dL (0.6-1.3); GLUCOSE 209 mg/dL (74-106); POTASSIUM 4.3 mmol/L (3.5-5.1); SODIUM SERUM 121 mmol/L (136-145); UREA NITROGEN, BLOOD 26 mg/dL (7-18)
[2017-10-06] MEDS: ALBUTEROL FS 2.5 MG/0.5 ML VIAL.NEB NEB SCH ×3 (07:42→23:30)
[2017-10-06] MEDS: BLOOD SUGAR DIAGNOSTIC 1 EACH STRIP IN SCH ×4 (08:25→22:19)
[2017-10-06] MEDS: FUROSEMIDE 40 MG/4 ML VIAL IV SCH ×3 (08:25→22:58)
[2017-10-06] MEDS: LACTOBACILLUS RHAMNOSUS GG 1 EACH CAP.SPRINK PO SCH ×2 (08:25→17:38)
[2017-10-06] MEDS: methylPREDNISolone SOD SUCC 125 MG/2ML VIAL IV SCH (08:25)
[2017-10-06] MEDS: ALLOPURINOL 100 MG TABLET PO SCH (08:25)
[2017-10-06] MEDS: ASPIRIN EC 81 MG TABLET.DR PO SCH (08:25)
[2017-10-06] MEDS: ATORVASTATIN 10 MG TABLET PO SCH (08:25)
[2017-10-06] MEDS: MULTIVIT, IRON, MIN NO. 8, FA 1 TAB PO SCH (08:25)
[2017-10-06] MEDS: AMMONIUM LACTATE 227 GM BOTTLE TP SCH ×2 (08:26→17:39)
[2017-10-06] MEDS: LISINOPRIL (20MG) 20 MG TABLET PO SCH (08:26)
[2017-10-06] MEDS: VANCOMYCIN 0.75 GM in IV D5W 250 ML IV SCH (08:41)
[2017-10-06] MEDS: HYDROCODONE/APAP 5/325MG 1 EACH TABLET PO PRN (10:09)
[2017-10-06 12:13] LABS: CALCIUM, SERUM 7.5 mg/dL (8.5-10.1); CARBON DIOXIDE 29 mmol/L (21-32); CHLORIDE 86 mmol/L (98-107); CREATININE 1.5 mg/dL (0.6-1.3); GLUCOSE 272 mg/dL (74-106); UREA NITROGEN, BLOOD 29 mg/dL (7-18)
[2017-10-06 12:16] LABS: SODIUM SERUM 119 mmol/L (136-145)
[2017-10-06] MEDS: CEFEPIME 2 GM in IV D5W 100 ML IV SCH ×2 (12:29→23:21)
[2017-10-06 13:33] LABS: CALCIUM, SERUM 7.3 mg/dL (8.5-10.1); CARBON DIOXIDE 28 mmol/L (21-32); CHLORIDE 86 mmol/L (98-107); CREATININE 1.5 mg/dL (0.6-1.3); GLUCOSE 255 mg/dL (74-106); UREA NITROGEN, BLOOD 29 mg/dL (7-18)
[2017-10-06 13:35] LABS: SODIUM SERUM 120 mmol/L (136-145)
--- NOTE | 2017-10-06 15:45 | NUR ---
RN CLOSING NOTE PATIENT TRANSFERRED TO [facility]. REPORT GIVEN TO DAVID SPARKS RN. FAMILY NOTIFIED.
[2017-10-06] MEDS: ONDANSETRON HCL/PF 4 MG/2 ML VIAL IVP PRN (15:54)
--- NOTE | 2017-10-06 16:00 | NUR ---
EDGE STRIPPER NOTES: PT WAS TRANSFERRED FROM ICU. PT ALERT AND ORIENTED X3. NO ACUTE DISTRESS NOTED. DENIES PAIN AND DISCOMFORT AT THIS TIME. ON O2LPM NC, NO SOB NOTED, SATURATING WELL. VITAL SIGNS STABLE. IV ON LEFT FOREARM #22 INTACT AND PATENT, FLUSHING WELL. PT KEPT ON 1500 ML FLUID RESTRICTION. ON TELE MONITOR SINUS TACHY 108BPM. BE CATH INTACT AND PATENT WITH CLEAR YELLOW URINE DRAINING. KEPT CLEAN, DRY AND COMFORTABLE. SAFETY AND FALL PRECAUTIONS OBSERVED AND MAINTAINED. CALL LIGHT WITHIN REACH. WILL CONEINUE TO MONITOR PT.
--- NOTE | 2017-10-06 16:30 | NUR ---
LOGISTICS ENGINEERING MANAGER NOTES: PT HAD AN EPISODE OF VOMITING X1, ZOFRAN PRN GIVEN. VERBALIZATION OF RELIEF NOTED. WILL CONTINUE TO MONITOR PT.
[2017-10-06] MEDS: TAMSULOSIN 0.4 MG CAP.SR.24H PO SCH (17:38)
[2017-10-06] MEDS: AMLODIPINE BESYLATE 5 MG TABLET PO SCH (17:39)
--- NOTE | 2017-10-06 19:23 | NUR ---
WALLCOVERING HANGER NOTES: NO CHANGES NOTED THROUGHOUT THE SHIFT. NO ACUTE DISTRESS NOTED. DENIES PAIN AND DISCOMFORT AT THIS TIME. SINUS TACHY HR 112BPM ON TELE MONITOR. BE CATH INTACT AND PATENT, DRAINED 1000CC OF URINE OUTPUT. IV ON LEFT FOREARM #22 INTACT AND PATENT, FLUSHING WELL. KEPT CLEAN, DRY AND COMFORTABLE. WILL ENDORSE TO TRAIN BRAKER FOR CONTINUITY OF CARE.
[2017-10-06] MEDS: INSULIN GLARGINE, 100 UNIT/ML CARTRIDGE SQ SCH (22:51)
[2017-10-06] MEDS: *INSULIN REGULAR(HUMULIN R)HUM 100 UNIT/ML VIAL SQ PRN (22:55)
[2017-10-07] VITALS: BP 126/67
[2017-10-07] MEDS: VANCOMYCIN 0.75 GM in IV D5W 250 ML IV SCH ×2 (03:00→18:21)
[2017-10-07] MEDS: IPRATROPIUM NEB FS 0.5 MG/2.5 ML AMPUL.NEB NEB SCH ×6 (03:30→23:08)
[2017-10-07 04:00] VITALS: BP 126/51
[2017-10-07 07:18] LABS: HEMATOCRIT 25 % (39-51); HEMOGLOBIN 8.2 g/dL (13.5-17.5); LYMPHOCYTES # (AUTO) 0.5 /CMM (0.8-4.8); LYMPHOCYTES % (AUTO) 3.4 % (20.0-44.0); MEAN CORPUSCULAR HEMOGLOBIN 30 PG (26.0-33.0); MEAN CORPUSCULAR HGB CONC 34 g/dl (31.0-36.0); MEAN CORPUSCULAR VOLUME 89 fL (80-96); MONOCYTES # (AUTO) 0.9 /CMM (0.1-1.30); MONOCYTES % (AUTO) 6.5 % (2.0-12.0); NEUTROPHILS # (AUTO) 12.1 /CMM (1.8-8.9); NEUTROPHILS % (AUTO) 90.1 % (43.0-81.0); PLATELET COUNT (AUTO) 328 /CMM (150-450); RDW COEFFICIENT OF VARIATION 14.7 (11.5-15.0); RED BLOOD CELL COUNT(AUTO) 2.77 MIL/uL (4.5-6.0); WHITE BLOOD COUNT (AUTO) 13.4 K/uL (4.3-11.0)
[2017-10-07 07:47] LABS: CALCIUM, SERUM 7.5 mg/dL (8.5-10.1); CARBON DIOXIDE 30 mmol/L (21-32); CHLORIDE 89 mmol/L (98-107); CREATININE 1.8 mg/dL (0.6-1.3); GLUCOSE 175 mg/dL (74-106); SODIUM SERUM 125 mmol/L (136-145); UREA NITROGEN, BLOOD 41 mg/dL (7-18)
[2017-10-07] MEDS: ALBUTEROL FS 2.5 MG/0.5 ML VIAL.NEB NEB SCH ×3 (07:55→23:11)
[2017-10-07 08:00] VITALS: BP 112/53
--- NOTE | 2017-10-07 08:00 | NUR ---
TELE1/RN AM SHIFT INITIAL NOTES RECEIVED PT AWAKE IN BED, PT A/O X 2-3, DENIES SHORTNESS OF BREATH, ON 2L O2 VIA N/C SATURATING @ 94%, LUNG SOUNDS DIMINISHED. ON TELE WITH SINUS TACHY, HR 110. IV SITE FLUSHED, PATENT WITH NO S/S OF INFECTION, SL. PT IS COMFORTABLE, SCHEDULED FOR ULTRASOUND GUIDED RIGHT LUNG THORACENTESIS TODAY. PT IS COMFORTABLE, SCHEDULED AM MEDS TO BE GIVEN. CL WITHIN REACHED AND SAFETY MAINTAINED. ON GOING MONITORING.
[2017-10-07] MEDS: BLOOD SUGAR DIAGNOSTIC 1 EACH STRIP IN SCH ×4 (08:23→21:05)
[2017-10-07] MEDS: methylPREDNISolone SOD SUCC 125 MG/2ML VIAL IV SCH (09:12)
[2017-10-07] MEDS: FUROSEMIDE 40 MG/4 ML VIAL IV SCH (09:12)
[2017-10-07] MEDS: ASPIRIN EC 81 MG TABLET.DR PO SCH (09:13)
[2017-10-07] MEDS: ATORVASTATIN 10 MG TABLET PO SCH (09:13)
[2017-10-07] MEDS: ALLOPURINOL 100 MG TABLET PO SCH (09:13)
[2017-10-07] MEDS: MULTIVIT, IRON, MIN NO. 8, FA 1 TAB PO SCH (09:13)
[2017-10-07] MEDS: LISINOPRIL (20MG) 20 MG TABLET PO SCH (09:13)
[2017-10-07] MEDS: ACETAMINOPHEN 325 MG TABLET PO PRN (09:16)
[2017-10-07] MEDS: INSULIN REGULAR, HUMAN 100 UNIT/ML 3 ML VIAL SQ PRN ×3 (09:16→17:23)
[2017-10-07] MEDS: LACTOBACILLUS RHAMNOSUS GG 1 EACH CAP.SPRINK PO SCH ×2 (09:18→17:16)
[2017-10-07] MEDS: AMMONIUM LACTATE 227 GM BOTTLE TP SCH ×2 (09:19→17:18)
--- NOTE | 2017-10-07 10:24 | NUR ---
TELE1/RN RIGHT LUNG THORACENTESIS ULTRASOUND GUIDED RIGHT LUNG THORACENTESIS PERFORMED BY DR. CROOKS. REMOVED 1,100ML OF FLUIDS, SENT TO LAB. PT TOLERATED PROCEDURE. STAT CHEST X-RAY ORDERED. MONITORING CONTINUED.
--- NOTE | 2017-10-07 10:30 | NUR ---
TELE1/RN ROUNDS - DR. LIZ UPDATED PT'S CONDITION. PT SEEN & EXAMINED BY DR. LIZ, NO NEW ORDERS RECEIVED AT THIS TIME. MONITORING CONTINUED.
[2017-10-07 12:00] VITALS: BP 99/57
[2017-10-07] MEDS: CEFEPIME 2 GM in IV D5W 100 ML IV SCH (12:31)
--- NOTE | 2017-10-07 15:00 | NUR ---
TELE1/RN ROUNDS - DR. GARBER UPDATED PT'S CONDITION. PT SEEN & EXAMINED BY DR. GARBER, NO NEW ORDERS RECEIVED AT THIS TIME. MONITORING CONTINUED.
[2017-10-07 16:00] VITALS: BP 93/52
--- NOTE | 2017-10-07 17:00 | NUR ---
MS1/RN AFTERNOON ROUNDS PM CARE PROVIDED, NO ACUTE CHANGE OF CONDITION. ON GOING MONITORING.
[2017-10-07] MEDS: TAMSULOSIN 0.4 MG CAP.SR.24H PO SCH (17:16)
[2017-10-07] MEDS: AMLODIPINE BESYLATE 5 MG TABLET PO SCH (17:17)
--- NOTE | 2017-10-07 19:30 | NUR ---
MS1/RN AM SHIFT END NOTES ALL NEEDS MET, NO ACUTE CHANGE OF CONDITION NOTED DURING THE SHIFT. PT ENDORSED TO PM NURSE TO CONTINUE CARE. CL WITHIN REACHED AND SAFETY MAINTAINED.
[2017-10-07 20:00] VITALS: BP 105/56
[2017-10-07] MEDS: INSULIN GLARGINE, 100 UNIT/ML CARTRIDGE SQ SCH (21:13)
[2017-10-07] MEDS: *INSULIN REGULAR(HUMULIN R)HUM 100 UNIT/ML VIAL SQ PRN (21:14)
[2017-10-07] MEDS: ALBUTEROL FS 2.5 MG/3 ML VIAL.NEB NEB PRN (23:08)
[2017-10-08] MEDS: CEFEPIME 2 GM in IV D5W 100 ML IV SCH ×3 (00:09→23:22)
--- NOTE | 2017-10-08 02:00 | NUR ---
MS RN NOTE GAVE REPORT TO SARMAD KAYE FOR TRANSFER OF CARE.
[2017-10-08] MEDS: IPRATROPIUM NEB FS 0.5 MG/2.5 ML AMPUL.NEB NEB SCH ×5 (03:30→20:18)
[2017-10-08 04:00] VITALS: BP 108/52
[2017-10-08 06:53] LABS: BASOPHILS % (AUTO) 0.1 % (0.0-2.0); HEMATOCRIT 25 % (39-51); HEMOGLOBIN 8.4 g/dL (13.5-17.5); LYMPHOCYTES # (AUTO) 0.5 /CMM (0.8-4.8); LYMPHOCYTES % (AUTO) 3.7 % (20.0-44.0); MEAN CORPUSCULAR HEMOGLOBIN 30 PG (26.0-33.0); MEAN CORPUSCULAR HGB CONC 33 g/dl (31.0-36.0); MEAN CORPUSCULAR VOLUME 90 fL (80-96); MONOCYTES # (AUTO) 0.8 /CMM (0.1-1.30); MONOCYTES % (AUTO) 6.2 % (2.0-12.0); NEUTROPHILS # (AUTO) 11.9 /CMM (1.8-8.9); PLATELET COUNT (AUTO) 362 /CMM (150-450); RDW COEFFICIENT OF VARIATION 14.9 (11.5-15.0); WHITE BLOOD COUNT (AUTO) 13.2 K/uL (4.3-11.0)
[2017-10-08 07:05] LABS: ALANINE AMINOTRANSFERASE 29 U/L (12-78); ALBUMIN 1.9 g/dL (3.4-5.0); ALKALINE PHOSPHATASE 274 U/L (46-116); ASPARTATE AMINOTRANSFERASE 42 U/L (15-37); BILIRUBIN,TOTAL 0.4 mg/dL (0.2-1.0); CALCIUM, SERUM 7.6 mg/dL (8.5-10.1); CARBON DIOXIDE 31 mmol/L (21-32); CHLORIDE 91 mmol/L (98-107); GLUCOSE 137 mg/dL (74-106); MAGNESIUM 2.4 mg/dL (1.8-2.4); PHOSPHORUS 3.4 mg/dL (2.5-4.9); POTASSIUM 4.2 mmol/L (3.5-5.1); SODIUM SERUM 126 mmol/L (136-145); UREA NITROGEN, BLOOD 56 mg/dL (7-18)
--- NOTE | 2017-10-08 07:30 | NUR ---
RN NOTES PATIENT RESTING IN BED. NONLABORED BREATHING NOTED ON ROOM AIR. DENYING PAIN . NO FACIAL GRIMACING NOTED. IV SITE GAUGE 22 PATENT AND INTACT. BED IN LOWEST LOCKED POSITION.CALL LIGHT WITHIN REACH SEIZURE, FALL, AND ASPIRATION PRECAUTIONS IMPLEMENTED THROUGHOUT SHIFT BE CATHETER DRAINING RAYNE URINE
[2017-10-08] MEDS: ALBUTEROL FS 2.5 MG/0.5 ML VIAL.NEB NEB SCH ×2 (07:31→15:29)
[2017-10-08] MEDS: BLOOD SUGAR DIAGNOSTIC 1 EACH STRIP IN SCH ×4 (07:56→21:32)
[2017-10-08 08:00] VITALS: BP 115/52
[2017-10-08] MEDS: LACTOBACILLUS RHAMNOSUS GG 1 EACH CAP.SPRINK PO SCH ×2 (08:45→17:51)
[2017-10-08] MEDS: LISINOPRIL (20MG) 20 MG TABLET PO SCH (09:00)
[2017-10-08 10:00] VITALS: BP 98/60
[2017-10-08] MEDS: ALLOPURINOL 100 MG TABLET PO SCH (10:29)
[2017-10-08] MEDS: ATORVASTATIN 10 MG TABLET PO SCH (10:29)
[2017-10-08] MEDS: MULTIVIT, IRON, MIN NO. 8, FA 1 TAB PO SCH (10:30)
[2017-10-08] MEDS: ASPIRIN EC 81 MG TABLET.DR PO SCH (10:31)
[2017-10-08] MEDS: methylPREDNISolone SOD SUCC 125 MG/2ML VIAL IV SCH (10:34)
[2017-10-08] MEDS: AMMONIUM LACTATE 227 GM BOTTLE TP SCH ×2 (10:37→18:01)
[2017-10-08 12:00] VITALS: BP 106/58
[2017-10-08] MEDS: INSULIN REGULAR, HUMAN 100 UNIT/ML 3 ML VIAL SQ PRN ×2 (12:27→17:47)
[2017-10-08 14:36] VITALS: BP 134/76
--- NOTE | 2017-10-08 14:37 | NUR ---
LASIX HELD EARLIER DUE TO BLOOD PRESSURE READING DR JAMES NOTIFIED OF BUN, CR, NA LEVEL TODAY.PER DR JAMES, CONTINUE DAILY DOSAGE OF LASIX VERBAL READBACK DONE
[2017-10-08] MEDS: FUROSEMIDE 40 MG/4 ML VIAL IV SCH (14:38)
[2017-10-08 16:00] VITALS: BP 105/52
[2017-10-08] MEDS: AMLODIPINE BESYLATE 5 MG TABLET PO SCH (17:00)
[2017-10-08] MEDS: TAMSULOSIN 0.4 MG CAP.SR.24H PO SCH (17:50)
[2017-10-08] MEDS: VANCOMYCIN 0.75 GM in IV D5W 250 ML IV SCH (17:52)
--- NOTE | 2017-10-08 19:30 | NUR ---
RN NOTES PATIENT RESTING IN BED. PATIENT AOX3. NONLABORED BREATHING NOTED ON ROOM AIR. DENYING PAIN . NO FACIAL GRIMACING NOTED. IV SITE GAUGE 22 PATENT AND INTACT ON LEFT ARM. BED IN LOWEST LOCKED POSITION.CALL LIGHT WITHIN REACH. FLUID RESTRICTION IMPLEMENTED. NEURO ASSESSMENT DONE EVERY 2 HOURS PATIENT KEPT CLEAN AND DRY. TURNED AND REPOSITIONED EVERY 2 HOURS SEIZURE, FALL, AND ASPIRATION PRECAUTIONS IMPLEMENTED THROUGHOUT SHIFT BE CATHETER DRAINING RAYNE URINE ENDORSED TO CALCINER OPERATORIC ENGINEER NO SEIZURES NOTED
[2017-10-08] MEDS: INSULIN GLARGINE, 100 UNIT/ML CARTRIDGE SQ SCH (21:37)
[2017-10-08] MEDS: *INSULIN REGULAR(HUMULIN R)HUM 100 UNIT/ML VIAL SQ PRN (21:38)
--- NOTE | 2017-10-08 23:45 | NUR ---
MS RN NOTE GAVE REPORT TO ENRRIQUE KAYE FOR TRANSFER OF CARE.
[2017-10-09] MEDS: ALBUTEROL FS 2.5 MG/0.5 ML VIAL.NEB NEB SCH ×3 (00:26→15:52)
[2017-10-09] MEDS: IPRATROPIUM NEB FS 0.5 MG/2.5 ML AMPUL.NEB NEB SCH ×7 (00:26→21:11)
[2017-10-09 04:00] VITALS: BP 123/59
--- NOTE | 2017-10-09 06:36 | NUR ---
RN CLOSING NOTES PT AWAKE AND RESTING IN BED. NO COMPLAINTS OF PAIN, SOB OR DISTRESS OVERNIGHT. PT HAS BE CATHETER INTACT AND DRAINING WELL, 850 OUTPUT OVERNIGHT. PT HAS A LEFT FOREARM IV #20, INTACT AND PATENT. ALL PATIENT NEEDS MET OVERNIGHT. SAFETY PRECAUTIONS IN PLACE, BED IN LOWEST LOCKED POSITION, X2 SIDE RAILS UP, AND CALL LIGHT WITH IN REACH. WILL ENDORSE TO DAY SHIFT NURSE FOR CONTINUITY OF CARE.
--- NOTE | 2017-10-09 07:10 | NUR ---
RN OPENING NOTES RECEIVED REPORT FROM PM NURSE.PT AWAKE AND RESTING IN BED. NO COMPLAINTS OF PAIN, SOB OR DISTRESS NOTED.ON O2 2L VIA NASAL CANULA.HAS BE CATHETER INTACT AND DRAINING CEAR YELLOW URINE. PT HAS A LEFT FOREARM IV #20, INTACT AND PATENT. SAFETY PRECAUTIONS IN PLACE, BED IN LOWEST LOCKED POSITION, SIDE RAILS X3, BED ALARM IS ON.CALL LIGHT WITH IN REACH. WILL CONTINUE TO MONITOR.
[2017-10-09 07:24] LABS: CALCIUM, SERUM 7.8 mg/dL (8.5-10.1); CARBON DIOXIDE 30 mmol/L (21-32); CHLORIDE 94 mmol/L (98-107); CREATININE 2.1 mg/dL (0.6-1.3); GLUCOSE 161 mg/dL (74-106); POTASSIUM 4.2 mmol/L (3.5-5.1); SODIUM SERUM 131 mmol/L (136-145); UREA NITROGEN, BLOOD 66 mg/dL (7-18)
[2017-10-09] MEDS: BLOOD SUGAR DIAGNOSTIC 1 EACH STRIP IN SCH ×4 (07:57→21:42)
[2017-10-09 08:00] VITALS: BP 131/73
[2017-10-09 09:24] LABS: EOSINOPHILS % (AUTO) 0.1 % (0.0-6.0); HEMATOCRIT 36 % (39-51); HEMOGLOBIN 10.1 g/dL (13.5-17.5); LYMPHOCYTES % (AUTO) 6.3 % (20.0-44.0); MEAN CORPUSCULAR HEMOGLOBIN 25 PG (26.0-33.0); MEAN CORPUSCULAR HGB CONC 28 g/dl (31.0-36.0); MEAN CORPUSCULAR VOLUME 91 fL (80-96); MONOCYTES # (AUTO) 1.4 /CMM (0.1-1.30); MONOCYTES % (AUTO) 9.1 % (2.0-12.0); NEUTROPHILS # (AUTO) 13.1 /CMM (1.8-8.9); NEUTROPHILS % (AUTO) 84.5 % (43.0-81.0); PLATELET COUNT (AUTO) 421 /CMM (150-450); RDW COEFFICIENT OF VARIATION 14.9 (11.5-15.0); RED BLOOD CELL COUNT(AUTO) 3.98 MIL/uL (4.5-6.0); WHITE BLOOD COUNT (AUTO) 15.5 K/uL (4.3-11.0)
[2017-10-09] MEDS: FUROSEMIDE 40 MG/4 ML VIAL IV SCH (09:51)
[2017-10-09] MEDS: methylPREDNISolone SOD SUCC 125 MG/2ML VIAL IV SCH (09:52)
[2017-10-09] MEDS: LISINOPRIL (20MG) 20 MG TABLET PO SCH (09:52)
[2017-10-09] MEDS: MULTIVIT, IRON, MIN NO. 8, FA 1 TAB PO SCH (09:52)
[2017-10-09] MEDS: ASPIRIN EC 81 MG TABLET.DR PO SCH (09:52)
[2017-10-09] MEDS: LACTOBACILLUS RHAMNOSUS GG 1 EACH CAP.SPRINK PO SCH ×2 (09:53→16:36)
[2017-10-09] MEDS: AMMONIUM LACTATE 227 GM BOTTLE TP SCH ×2 (09:54→16:35)
[2017-10-09] MEDS: ALLOPURINOL 100 MG TABLET PO SCH (09:58)
[2017-10-09] MEDS: ATORVASTATIN 10 MG TABLET PO SCH (09:58)
[2017-10-09] MEDS: INSULIN REGULAR, HUMAN 100 UNIT/ML 3 ML VIAL SQ PRN ×4 (10:23→21:41)
[2017-10-09] MEDS ORDERED: IV NS 0.9% 1,000 ML BAG IV PRN (10:30)
--- NOTE | 2017-10-09 10:30 | NUR ---
RN NOTES SEEN BY MADE AWARE ABOUT ALL THE LABS TODAY.SAID WILL CONTINUE TO MONITOR.ALSO MADE AWARE THAT PATIENT IS CONFUSED AND TALKING TO HIMSELF.AXOX4.FAMILY WAS AT BEDSIDE ,TOLD THAT HE IS MORE CONFUSED THAN YESTERDAY.SHE ALSO TOLD THAT HE HAD THIS KIND OF EPISODE BEFORE HE HAD INFECTION EPISODE. ASKED TO FOLLOW UP WITH SNF FOR MED RECON.WILL CONTINUE TO MONITOR.GOT NEW ORDER FOR IVF.
[2017-10-09] MEDS ORDERED: IV NS 0.9% 1,000 ML IV PRN (11:00)
[2017-10-09] MEDS: CEFEPIME 2 GM in IV D5W 100 ML IV SCH (12:22)
[2017-10-09 16:00] VITALS: BP 113/59
[2017-10-09] MEDS: VANCOMYCIN 0.75 GM in IV D5W 250 ML IV SCH (17:52)
[2017-10-09] MEDS: TAMSULOSIN 0.4 MG CAP.SR.24H PO SCH (17:52)
[2017-10-09] MEDS: AMLODIPINE BESYLATE 5 MG TABLET PO SCH (17:52)
--- NOTE | 2017-10-09 18:55 | NUR ---
RN CLOSING NOTES PT AWAKE AND RESTING IN BED.PATIENT IS AXOX4 WITH PERIODS OF CONFUSION. NO COMPLAINTS OF PAIN, SOB OR DISTRESS NOTED.ON O2 2L VIA NASAL CANULA.HAS BE CATHETER INTACT AND DRAINING CLEAR YELLOW URINE. PT HAS A LEFT FOREARM IV #20, INTACT AND PATENT. SAFETY PRECAUTIONS IN PLACE, BED IN LOWEST LOCKED POSITION, SIDE RAILS X3, BED ALARM IS ON.CALL LIGHT WITH IN REACH.WILL ENDORSE TO PM NURSE FOR BHARAT.
--- NOTE | 2017-10-09 19:30 | NUR ---
MS TOMY INITIAL NOTES RECEIVED REPORT FROM AM NURSE AND SEEN THE PT WELL. HE'S AWAKE AND ALERT SPEAK ROMANSH AND TAGALOG. DENIES ANY PAIN OR ANY DISCOMFORT, NOT IN ANY ACUTE DISTRESS NOTED AT THIS TIME. RESPIRATION EVEN AND NON-LABORED. RE-ORIENTED WHERE HE AT AND HOW TO USED THE CALL LIGHT SYSTEM AND PT UNDERSTOOD WELL. HEPLOCK PATENT AND INTACT. BE TO GRAVITY WITH CLEAR YELLOW OUTPUT NOTED. KEPT HIM WARM AND COMFORTABLE AT ALL TIMES. BED IN LOW AND LOCK IN POSITION WITH SIDE RAILS X3 UP AND BED ALARM SET FOR PT SAFETY. AT THE BEDSIDE AT THIS TIME. WILL CONTINUE MONITORING.
[2017-10-09] MEDS: INSULIN GLARGINE, 100 UNIT/ML CARTRIDGE SQ SCH (21:39)
--- NOTE | 2017-10-09 22:30 | NUR ---
MS TOMY NOTES' BLOOD SUGAR CHECKED DONE 257, 12 UNITS OF LANTUS GIVEN WELL 12 UNITS OF INSULIN MONICA SQ ORDERED. NO SIGNS OF HYPER GLYCEMIA NOTED. SNACKS ALSO SERVED. WILL CONTINUE MONITORING. PLACE CALL LIGHT AT REACH.
[2017-10-10] MEDS: ALBUTEROL FS 2.5 MG/0.5 ML VIAL.NEB NEB SCH ×4 (00:09→23:54)
[2017-10-10] MEDS: IPRATROPIUM NEB FS 0.5 MG/2.5 ML AMPUL.NEB NEB SCH ×7 (00:09→23:54)
--- NOTE | 2017-10-10 01:47 | NUR ---
MS TOMY NOTES' PT SLEEPING COMFORTABLY IN BED WITHOUT ANY ACUTE DISTRESS NOTED. KEPT HIM WARM AND COMFORTABLE AT ALL TIMES. WILL CONTINUE MONITORING.
[2017-10-10] MEDS: BLOOD SUGAR DIAGNOSTIC 1 EACH STRIP IN SCH ×4 (05:57→21:48)
--- NOTE | 2017-10-10 05:58 | NUR ---
MS SCIENTIFIC INFORMATICS LEADER NOTES CHECKED PT REMAINS SLEEPING COMFORTABLY IN BED WITHOUT ANY ACUTE DISTRESS NOTED. BLOOD SUGAR 106 NO SIGNS OF HYPO GLYCEMIA NOTED. NO INSULIN AT THIS TIME. WILL CONTINUE MONITORING.
--- NOTE | 2017-10-10 06:50 | NUR ---
MS ASSEMBLYMAN OR WOMAN CLOSING NOTES PT REMAIN SLEEPING COMFORTABLY IN BED WITHOUT ANY ACUTE DISTRESS NOTED, RESPIRATION EVEN AND NON-LABORED. STABLE MONICA THE NIGHT AND SLEPT WELL. NO AGITATION NOTED. ALL DUE MEDS GIVEN AND ALL NEEDS MET , MORNING CARE ALSO DONE WITH THE HELPED OF FRANCISCO ZHANG. KEPT HIM WARM AND COMFORTABLE AT ALL TIMES. BED IN LOW AND LOCK IN POSITION WITH SIDE RAILS X3 UP AND BED ALARM SET FOR PT SAFETY. WILL ENDORSE TO AM NURSE FOR CONTINUITY OF CARE. PLACE CALL LIGHT AT REACH.
[2017-10-10 06:58] LABS: CALCIUM, SERUM 7.9 mg/dL (8.5-10.1); CARBON DIOXIDE 33 mmol/L (21-32); CHLORIDE 98 mmol/L (98-107); CREATININE 1.9 mg/dL (0.6-1.3); GLUCOSE 113 mg/dL (74-106); POTASSIUM 4.1 mmol/L (3.5-5.1); SODIUM SERUM 133 mmol/L (136-145); UREA NITROGEN, BLOOD 74 mg/dL (7-18)
[2017-10-10 07:03] LABS: BASOPHILS % (AUTO) 0.1 % (0.0-2.0); EOSINOPHILS % (AUTO) 0.1 % (0.0-6.0); HEMATOCRIT 27 % (39-51); HEMOGLOBIN 8.6 g/dL (13.5-17.5); LYMPHOCYTES # (AUTO) 0.6 /CMM (0.8-4.8); LYMPHOCYTES % (AUTO) 3.2 % (20.0-44.0); MEAN CORPUSCULAR HEMOGLOBIN 29 PG (26.0-33.0); MEAN CORPUSCULAR HGB CONC 32 g/dl (31.0-36.0); MEAN CORPUSCULAR VOLUME 91 fL (80-96); MONOCYTES # (AUTO) 1.2 /CMM (0.1-1.30); MONOCYTES % (AUTO) 6.2 % (2.0-12.0); NEUTROPHILS # (AUTO) 17.7 /CMM (1.8-8.9); NEUTROPHILS % (AUTO) 90.4 % (43.0-81.0); PLATELET COUNT (AUTO) 370 /CMM (150-450); RDW COEFFICIENT OF VARIATION 14.8 (11.5-15.0); RED BLOOD CELL COUNT(AUTO) 2.95 MIL/uL (4.5-6.0); WHITE BLOOD COUNT (AUTO) 19.6 K/uL (4.3-11.0)
--- NOTE | 2017-10-10 08:00 | NUR ---
MS RN NOTES RECVD PT IN BED. A&O X2. WITH CONFUSION ON 2L NASAL CANNULA. NO SHORTNESS OF BREATH NOTED. BE CATHETER TO GRAVITY. SLIGHT PINK TINGED URINE COLOR. HEP LOCK L FOREARM INTACT, NO S/SX OF INFECTION. BED IN LOCKED LOWEST POSITION, CALL LIGHT IN REACH. PLAN OF CARE DISCUSSED WITH PATIENT.
[2017-10-10] MEDS: LACTOBACILLUS RHAMNOSUS GG 1 EACH CAP.SPRINK PO SCH ×2 (09:01→16:18)
[2017-10-10] MEDS: ASPIRIN EC 81 MG TABLET.DR PO SCH (09:01)
[2017-10-10] MEDS: ALLOPURINOL 100 MG TABLET PO SCH (09:02)
[2017-10-10] MEDS: ATORVASTATIN 10 MG TABLET PO SCH (09:02)
[2017-10-10] MEDS: MULTIVIT, IRON, MIN NO. 8, FA 1 TAB PO SCH (09:02)
[2017-10-10] MEDS: LISINOPRIL (20MG) 20 MG TABLET PO SCH (09:02)
[2017-10-10] MEDS: methylPREDNISolone SOD SUCC 125 MG/2ML VIAL IV SCH (09:03)
[2017-10-10] MEDS: FUROSEMIDE 40 MG/4 ML VIAL IV SCH (09:03)
[2017-10-10] MEDS: AMMONIUM LACTATE 227 GM BOTTLE TP SCH ×2 (09:07→16:18)
--- NOTE | 2017-10-10 11:25 | NUR ---
MS RN NOTES KEPT CLEAN AND DRY. CALL LIGHT IN REACH, NOT IN DISTRESS
[2017-10-10] MEDS: INSULIN REGULAR, HUMAN 100 UNIT/ML 3 ML VIAL SQ PRN ×2 (12:42→17:17)
--- NOTE | 2017-10-10 13:40 | NUR ---
MS RN NOTES WBC 19.6. RENZO RN RETORT FEEDER GROUND BONE AWARE. STATED WE WILL CALL INFECTIOUS DISEASE NURSE YANDEL.
[2017-10-10] MEDS: CEFEPIME 1 GM in IV D5W 50 ML IV SCH (15:11)
[2017-10-10 16:00] VITALS: BP 135/71
[2017-10-10] MEDS: TAMSULOSIN 0.4 MG CAP.SR.24H PO SCH (17:01)
[2017-10-10] MEDS: AMLODIPINE BESYLATE 5 MG TABLET PO SCH (17:02)
[2017-10-10] MEDS ORDERED: VANCOMYCIN 0.75 GM in IV D5W 250 ML IV SCH (18:00)
--- NOTE | 2017-10-10 18:28 | NUR ---
VALERIE RN NOTES YANDEL OPERATOR HELPER AT BEDSIDE. ALL NEEDS ATTENDED. REPOSITIONED. FED BY FAMILY FRIEND, VAUGHN AT BEDSIDE.
--- NOTE | 2017-10-10 19:30 | NUR ---
RN INITIAL NOTES, RECEIVED PT IN BED. A&O X2, BREATHING EVEN AND UNLABORED, NO SHORTNESS OF BREATH OR ACUTE DISTRESS NOTED AT THIS TIME, ON 2L NASAL CANNULA SATURATING WELL AT TIME, BE CATHETER IN PLACE DRAINING URINE BY GRAVITY, SLIGHT PINK TINGED URINE COLOR NOTED, PIV LINE IN FOREARM PATENT AND INTACT, NO S/S OF INFECTION, BED IN LOCKED LOWEST POSITION, CALL LIGHT IN REACH, AT BEDSIDE AT THIS TIME, WILL CONTINUE TO MONITOR CLOSELY.
[2017-10-10 20:00] VITALS: BP 129/61
[2017-10-10] MEDS: *INSULIN REGULAR(HUMULIN R)HUM 100 UNIT/ML VIAL SQ PRN (21:52)
[2017-10-10] MEDS: INSULIN GLARGINE, 100 UNIT/ML CARTRIDGE SQ SCH (21:53)
[2017-10-11] MEDS: IPRATROPIUM NEB FS 0.5 MG/2.5 ML AMPUL.NEB NEB SCH ×5 (03:47→20:19)
[2017-10-11 04:00] VITALS: BP 133/64
[2017-10-11 06:33] LABS: EOSINOPHILS % (AUTO) 0.5 % (0.0-6.0); HEMATOCRIT 29 % (39-51); HEMOGLOBIN 9.3 g/dL (13.5-17.5); LYMPHOCYTES # (AUTO) 0.7 /CMM (0.8-4.8); LYMPHOCYTES % (AUTO) 3.2 % (20.0-44.0); MEAN CORPUSCULAR HEMOGLOBIN 29 PG (26.0-33.0); MEAN CORPUSCULAR HGB CONC 32 g/dl (31.0-36.0); MEAN CORPUSCULAR VOLUME 91 fL (80-96); MONOCYTES # (AUTO) 1.1 /CMM (0.1-1.30); NEUTROPHILS # (AUTO) 19.4 /CMM (1.8-8.9); NEUTROPHILS % (AUTO) 91.3 % (43.0-81.0); PLATELET COUNT (AUTO) 378 /CMM (150-450); RDW COEFFICIENT OF VARIATION 15.3 (11.5-15.0); WHITE BLOOD COUNT (AUTO) 21.3 K/uL (4.3-11.0)
[2017-10-11 06:59] LABS: CALCIUM, SERUM 8.1 mg/dL (8.5-10.1); CARBON DIOXIDE 31 mmol/L (21-32); CHLORIDE 99 mmol/L (98-107); CREATININE 1.9 mg/dL (0.6-1.3); GLUCOSE 116 mg/dL (74-106); POTASSIUM 3.9 mmol/L (3.5-5.1); SODIUM SERUM 137 mmol/L (136-145); UREA NITROGEN, BLOOD 74 mg/dL (7-18)
[2017-10-11] MEDS: ALBUTEROL FS 2.5 MG/0.5 ML VIAL.NEB NEB SCH ×2 (07:21→14:59)
--- NOTE | 2017-10-11 07:30 | NUR ---
FRONT OFFICE JAVA DEVELOPER INITIAL NOTES RECEIVED PATIENT IN BED, NO SIGNS OF DISTRESS, ON 2L NC NO SHORTNESS OF BREATH, AOX3, TAGALOG SPEAKING, FC TO GRAVITY YELLOW CLEAR URINE NOTED,. IV LFA 20G, CLEAN AND PATENT, BED IN LOW AND LOCKED POSITION, CALL LIGHT WITHIN REACH, WILL CONTINUE TO MONITOR.
[2017-10-11 08:00] VITALS: BP 123/62
[2017-10-11] MEDS: BLOOD SUGAR DIAGNOSTIC 1 EACH STRIP IN SCH ×4 (08:00→21:04)
[2017-10-11] MEDS: ATORVASTATIN 10 MG TABLET PO SCH (09:25)
[2017-10-11] MEDS: ASPIRIN EC 81 MG TABLET.DR PO SCH (09:25)
[2017-10-11] MEDS: MULTIVIT, IRON, MIN NO. 8, FA 1 TAB PO SCH (09:25)
[2017-10-11] MEDS: LACTOBACILLUS RHAMNOSUS GG 1 EACH CAP.SPRINK PO SCH ×2 (09:25→17:25)
[2017-10-11] MEDS: FUROSEMIDE 40 MG/4 ML VIAL IV SCH (09:25)
[2017-10-11] MEDS: methylPREDNISolone SOD SUCC 125 MG/2ML VIAL IV SCH (09:25)
[2017-10-11] MEDS: AMMONIUM LACTATE 227 GM BOTTLE TP SCH ×2 (09:26→17:26)
[2017-10-11] MEDS: LISINOPRIL (20MG) 20 MG TABLET PO SCH (09:26)
[2017-10-11] MEDS: ALLOPURINOL 100 MG TABLET PO SCH (09:26)
[2017-10-11 10:40] LABS: BAND % (MANUAL) 1 % (0.0-5.0); LYMPHOCYTES % (MANUAL) 5 % (16-48); MONOCYTES % (MANUAL) 9 % (0-11.0); NEUTROPHILS % (MANUAL) 85 (42-76)
[2017-10-11] MEDS ORDERED: IV NS 0.9% 500 ML BAG IV ONE (12:00)
[2017-10-11] MEDS: INSULIN REGULAR, HUMAN 100 UNIT/ML 3 ML VIAL SQ PRN ×2 (12:04→17:32)
[2017-10-11] MEDS ORDERED: IV NS 0.9% 500 ML IV ONE (12:30)
[2017-10-11] MEDS: CEFEPIME 1 GM in IV D5W 50 ML IV SCH (14:33)
[2017-10-11 16:00] VITALS: BP 108/50
--- NOTE | 2017-10-11 17:00 | NUR ---
PURE CULTURE OPERATOR NOTES PATIENT CONCERNED PATIENT IS STILL WEAK WITH SOME CONFUSION, KIN MAURICIO NOTIFIED, NO NEW ORDERS, WILL CONTINUE TO MONITOR PATIENT.
[2017-10-11] MEDS: TAMSULOSIN 0.4 MG CAP.SR.24H PO SCH (17:25)
[2017-10-11] MEDS: AMLODIPINE BESYLATE 5 MG TABLET PO SCH (17:27)
--- NOTE | 2017-10-11 18:48 | NUR ---
METAL BALER NOTES PATIENT RESTING IN BED, NO SIGNS OF DISTRESS, PATIENTS AT BEDSIDE, ALL NEEDS ATTENDED TO ALL QUESTIONS ANSWERED, WILL ENDORSE TO SOLUTION COORDINATOR FOR CONTINUITY OF CARE.
[2017-10-11 20:00] VITALS: BP 120/61
[2017-10-11] MEDS: *INSULIN REGULAR(HUMULIN R)HUM 100 UNIT/ML VIAL SQ PRN (21:09)
[2017-10-11] MEDS: INSULIN GLARGINE, 100 UNIT/ML CARTRIDGE SQ SCH (21:10)
[2017-10-12] MEDS: IPRATROPIUM NEB FS 0.5 MG/2.5 ML AMPUL.NEB NEB SCH ×7 (00:09→23:13)
[2017-10-12] MEDS: ALBUTEROL FS 2.5 MG/0.5 ML VIAL.NEB NEB SCH ×4 (00:09→23:13)
[2017-10-12 04:00] VITALS: BP 122/62
--- NOTE | 2017-10-12 06:41 | NUR ---
MS RN CLOSING NOTES, PATIENT IN BED., SLEEPING T THIS TIME, BUT EASILY TO AROUSE, BREATHING EVEN AND UNLABORED, NO SHORTNESS OF BREATH OR ACUTE DISTRESS NOTED AT THIS TIME, ON 2L NASAL CANNULA SATURATING WELL AT TIME, BE CATHETER IN PLACE DRAINING YELLOW URINE BY GRAVITY, PIV LINE IN RIGHT AC PATENT AND INTACT, NO S/S OF INFECTION, BED IN LOCKED LOWEST POSITION, CALL LIGHT IN REACH, AT BEDSIDE AT THIS TIME, WILL ENDORSE CONTINUITY OF CARE TO ONCOMING NURSE..
--- NOTE | 2017-10-12 07:21 | NUR ---
MS RN NOTES: RECEIVED PT ON BED ASLEEP BUT AROUSES EASILY. NO APPARENT DISTRESS NOTED. NO FACIAL GRIMACING OR ANY SIGNS OF PAIN NOTED. NO SOB. IV ON RIGHT ANTECUBITAL #20 INTACT AND PATENT, FLUSHING WELL. BE CATH INTACT WITH CLEAR YELLOW URINE DRAINING. KEPT CLEAN, DRY AND COMFORTABLE. CALL LIGHT PLACED WITHIN REACH. SAFETY AND FALL PRECAUTIONS OBSERVED AND MAINTAINED. WILL CONTINUE TO MONITOR PT.
[2017-10-12 07:25] LABS: EOSINOPHILS % (AUTO) 0.1 % (0.0-6.0); HEMATOCRIT 28 % (39-51); HEMOGLOBIN 8.9 g/dL (13.5-17.5); LYMPHOCYTES # (AUTO) 0.8 /CMM (0.8-4.8); LYMPHOCYTES % (AUTO) 4.1 % (20.0-44.0); MEAN CORPUSCULAR HEMOGLOBIN 29 PG (26.0-33.0); MEAN CORPUSCULAR HGB CONC 32 g/dl (31.0-36.0); MEAN CORPUSCULAR VOLUME 91 fL (80-96); MONOCYTES # (AUTO) 0.8 /CMM (0.1-1.30); NEUTROPHILS # (AUTO) 18.8 /CMM (1.8-8.9); NEUTROPHILS % (AUTO) 91.8 % (43.0-81.0); PLATELET COUNT (AUTO) 311 /CMM (150-450); RDW COEFFICIENT OF VARIATION 15.2 (11.5-15.0); RED BLOOD CELL COUNT(AUTO) 3.05 MIL/uL (4.5-6.0); WHITE BLOOD COUNT (AUTO) 20.4 K/uL (4.3-11.0)
[2017-10-12] MEDS: BLOOD SUGAR DIAGNOSTIC 1 EACH STRIP IN SCH ×4 (07:48→21:42)
[2017-10-12 07:51] LABS: CARBON DIOXIDE 30 mmol/L (21-32); CHLORIDE 100 mmol/L (98-107); CREATININE 2.7 mg/dL (0.6-1.3); GLUCOSE 146 mg/dL (74-106); POTASSIUM 4.5 mmol/L (3.5-5.1); SODIUM SERUM 137 mmol/L (136-145)
[2017-10-12 08:00] VITALS: BP 131/62
[2017-10-12 08:02] LABS: UREA NITROGEN, BLOOD 89 mg/dL (7-18)
[2017-10-12] MEDS: ATORVASTATIN 10 MG TABLET PO SCH (08:30)
[2017-10-12] MEDS: LISINOPRIL (20MG) 20 MG TABLET PO SCH (08:30)
[2017-10-12] MEDS: ALLOPURINOL 100 MG TABLET PO SCH (08:30)
[2017-10-12] MEDS: MULTIVIT, IRON, MIN NO. 8, FA 1 TAB PO SCH (08:30)
[2017-10-12] MEDS: LACTOBACILLUS RHAMNOSUS GG 1 EACH CAP.SPRINK PO SCH ×2 (08:31→17:04)
[2017-10-12] MEDS: ASPIRIN EC 81 MG TABLET.DR PO SCH (08:31)
[2017-10-12] MEDS: AMMONIUM LACTATE 227 GM BOTTLE TP SCH ×2 (08:31→17:14)
[2017-10-12] MEDS: FUROSEMIDE 40 MG/4 ML VIAL IV SCH (08:31)
[2017-10-12] MEDS: INSULIN REGULAR, HUMAN 100 UNIT/ML 3 ML VIAL SQ PRN ×3 (08:41→18:09)
--- NOTE | 2017-10-12 08:45 | NUR ---
MS RN NOTES: RECEIVED A CALL FROM LAB ([facility]) REAGING PATIENT'S BUN 89. DR. HARRIS MADE AWARE. NO NEW ORDERS AT THIS TIME.
[2017-10-12] MEDS ORDERED: methylPREDNISolone SOD SUCC 125 MG/2ML VIAL IV SCH (09:00)
--- NOTE | 2017-10-12 10:55 | NUR ---
MS RN NOTES: RECEIVED A CALL FROM INFECTION CONTROL REGARDING PATIENT'S BE CATH, PER INFECTION CONTROL PT DOES NOT NEED A BE CATH. NOTIFIED ELEVATOR MECHANIC APPRENTICE CRIS DUMONT. STILL AWAITING FOR RESPONSE.
[2017-10-12 11:40] LABS: APPEARANCE,URINE CLEAR (CLEAR); BILIRUBIN,URINE NEGATIVE (NEGATIVE); BLOOD, URINE 3+ Ery/uL (NEGATIVE); COLOR,URINE YELLOW (YELLOW); KETONES,URINE NEGATIVE (NEGATIVE); LEUKOCYTE ESTERASE ,URINE NEGATIVE (NEGATIVE); NITRITE, URINE NEGATIVE (NEGATIVE); PROTEIN,URINE 1+ mg/dl (NEGATIVE); UGLUCOSE NEGATIVE (NEGATIVE); UROBILINOGEN,URINE 0.2 EU/dL (0.2)
[2017-10-12 11:47] LABS: BACTERIA,URINE Rare /HPF (None Seen); MUCUS,URINE Few /LPF (None Seen); URINE AMORPHOUS URATE Few /HPF (None Seen); WBC,URINE 0-2 /HPF (0-3); YEAST,URINE Few /HPF (None Seen)
[2017-10-12 12:59] LABS: EOSINOPHIL,URINE None Seen
[2017-10-12 16:00] VITALS: BP 113/58
[2017-10-12] MEDS: AMLODIPINE BESYLATE 5 MG TABLET PO SCH (17:05)
[2017-10-12] MEDS: TAMSULOSIN 0.4 MG CAP.SR.24H PO SCH (17:05)
--- NOTE | 2017-10-12 19:30 | NUR ---
MS RN INITIAL NOTES, RECEIVED PT IN BED, ALERT AND ORIENTED ABLE TO VERBALIZED NEEDS, BREATHING EVEN AND UNLABORED, NO SHORTNESS OF BREATH OR ACUTE DISTRESS NOTED AT THIS TIME, ON 2L NASAL CANNULA SATURATING WELL AT THIS TIME, BE CATHETER IN PLACE DRAINING URINE BY GRAVITY, PIV LINE IN LA AND RAC S/L 20G PATENT AND INTACT, NO S/S OF INFECTION AT SITE, BED IN LOCKED LOWEST POSITION, CALL LIGHT IN REACH, AT BEDSIDE AT THIS TIME, WILL CONTINUE TO MONITOR CLOSELY.
--- NOTE | 2017-10-12 19:39 | NUR ---
MS RN NOTES: NO CHANGES NOTED THROUGHOUT THE SHIFT. DENIES PAIN AND DISCOMFORT AT THIS TIME. ON O2 2LPM NC, NO SOB NOTED. BE CATH INTACT AND PATENT WITH CLEAR YELLOW URINE DRAINING. PT REMAINED ON 1500ML FLUID RESTRICTION. KEPT CLEAN, DRY AND COMFORTABLE. WILL ENDORSE TO DIRECTOR [facility] AFFAIRS FOR CONTINUITY OF CARE.
[2017-10-12 20:00] VITALS: BP 115/52
[2017-10-12] MEDS: *INSULIN REGULAR(HUMULIN R)HUM 100 UNIT/ML VIAL SQ PRN (21:50)
[2017-10-12] MEDS: INSULIN GLARGINE, 100 UNIT/ML CARTRIDGE SQ SCH (21:51)
[2017-10-13 04:00] VITALS: BP 124/57
[2017-10-13] MEDS: IPRATROPIUM NEB FS 0.5 MG/2.5 ML AMPUL.NEB NEB SCH ×6 (04:09→23:46)
[2017-10-13 06:19] LABS: EOSINOPHILS % (AUTO) 0.8 % (0.0-6.0); HEMATOCRIT 28 % (39-51); HEMOGLOBIN 8.8 g/dL (13.5-17.5); LYMPHOCYTES % (AUTO) 5.3 % (20.0-44.0); MEAN CORPUSCULAR HEMOGLOBIN 29 PG (26.0-33.0); MEAN CORPUSCULAR HGB CONC 32 g/dl (31.0-36.0); MEAN CORPUSCULAR VOLUME 91 fL (80-96); MONOCYTES # (AUTO) 0.9 /CMM (0.1-1.30); MONOCYTES % (AUTO) 4.9 % (2.0-12.0); NEUTROPHILS # (AUTO) 16.2 /CMM (1.8-8.9); PLATELET COUNT (AUTO) 281 /CMM (150-450); RDW COEFFICIENT OF VARIATION 15.5 (11.5-15.0); RED BLOOD CELL COUNT(AUTO) 3.01 MIL/uL (4.5-6.0); WHITE BLOOD COUNT (AUTO) 18.2 K/uL (4.3-11.0)
--- NOTE | 2017-10-13 06:50 | NUR ---
MS RN CLOSING NOTES, PATIENT IN BED, AWAKE AT THIS TIME, BREATHING EVEN AND UNLABORED, NO SHORTNESS OF BREATH OR ACUTE DISTRESS NOTED AT THIS TIME, ON 2L NASAL CANNULA SATURATING WELL AT TIME, YS/P F/C REMOVAL ONE VOID NOTED AFTER F/C REMOVAL, PIV LINE IN RIGHT AC AND LFA PATENT AND INTACT, NO S/S OF INFECTION, BED IN LOCKED LOWEST POSITION, CALL LIGHT IN REACH, NO SIGNIFICANT CHANGE IN CONDITION THROUGHOUT THE NIGHT, WILL ENDORSE CONTINUITY OF CARE TO ONCOMING NURSE..
[2017-10-13 07:02] LABS: ALANINE AMINOTRANSFERASE 26 U/L (12-78); ALBUMIN 1.9 g/dL (3.4-5.0); ALKALINE PHOSPHATASE 427 U/L (46-116); ASPARTATE AMINOTRANSFERASE 103 U/L (15-37); BILIRUBIN,TOTAL 0.3 mg/dL (0.2-1.0); CALCIUM, SERUM 7.5 mg/dL (8.5-10.1); CARBON DIOXIDE 31 mmol/L (21-32); CHLORIDE 99 mmol/L (98-107); CREATININE 2.9 mg/dL (0.6-1.3); GLUCOSE 95 mg/dL (74-106); MAGNESIUM 2.6 mg/dL (1.8-2.4); PHOSPHORUS 4.5 mg/dL (2.5-4.9); POTASSIUM 3.8 mmol/L (3.5-5.1); SODIUM SERUM 134 mmol/L (136-145); TOTAL PROTEIN, SERUM 5.9 g/dL (6.4-8.2)
[2017-10-13 07:12] LABS: UREA NITROGEN, BLOOD 94 mg/dL (7-18)
[2017-10-13 07:16] LABS: CREATINE KINASE, TOTAL 48 U/L (39-308)
[2017-10-13] MEDS: ALBUTEROL FS 2.5 MG/0.5 ML VIAL.NEB NEB SCH ×3 (07:20→23:46)
--- NOTE | 2017-10-13 07:25 | NUR ---
MS RN NOTES: RECEIVED PT ON BED ASLEEP, BUT AROUSES EASILY. NO APPARENT DISTRESS NOTED. NO COMPLAINTS OF PAIN OR DISCOMFORT. ON O2 2LPM NC, SATURATING WELL. IV ON RIGHT ANTECUBITAL #20 INTACT AND PATENT, FLUSHING WELL. CALL LIGHT PLACED WITHIN REACH. ENCOURAGED TO CALL FOR ASSISTANCE IF NEEDED. KEPT CLEAN, DRY AND COMFORTABLE. SIDE RAILS UP X3. BED ALARM ON. BED LOCKED AND IN LOWEST POSITION. WILL CONTINUE TO MONITOR PT.
[2017-10-13] MEDS ORDERED: ALBU2.5V13 NEB (07:32)
[2017-10-13] MEDS ORDERED: Insulin Glargine,Hum SQ (07:32)
[2017-10-13] MEDS ORDERED: *INS REG3 SQ (07:33)
[2017-10-13] MEDS ORDERED: INSU100V28 SQ (07:33)
[2017-10-13] MEDS ORDERED: LACT1CAP72 PO (07:33)
[2017-10-13 08:00] VITALS: BP 124/57
[2017-10-13] MEDS: BLOOD SUGAR DIAGNOSTIC 1 EACH STRIP IN SCH ×4 (08:01→23:05)
[2017-10-13] MEDS: MULTIVIT, IRON, MIN NO. 8, FA 1 TAB PO SCH (08:13)
[2017-10-13] MEDS: ATORVASTATIN 10 MG TABLET PO SCH (08:13)
[2017-10-13] MEDS: ASPIRIN EC 81 MG TABLET.DR PO SCH (08:13)
[2017-10-13] MEDS: ALLOPURINOL 100 MG TABLET PO SCH (08:13)
[2017-10-13] MEDS: LACTOBACILLUS RHAMNOSUS GG 1 EACH CAP.SPRINK PO SCH ×2 (08:13→17:31)
[2017-10-13] MEDS: AMMONIUM LACTATE 227 GM BOTTLE TP SCH ×2 (08:14→17:39)
[2017-10-13] MEDS: IV NS 0.9% 1,000 ML IV PRN (11:05)
[2017-10-13] MEDS: INSULIN REGULAR, HUMAN 100 UNIT/ML 3 ML VIAL SQ PRN ×2 (12:38→18:05)
[2017-10-13 16:00] VITALS: BP 133/67
[2017-10-13] MEDS: TAMSULOSIN 0.4 MG CAP.SR.24H PO SCH (17:31)
[2017-10-13] MEDS: AMLODIPINE BESYLATE 5 MG TABLET PO SCH (17:32)
--- NOTE | 2017-10-13 18:54 | NUR ---
MS RN NOTES: NO CHANGES NOTED THROUGHOUT THE SHIFT. FAMILY AT BEDSIDE DURING THIS TIME. NO COMPLAINTS OF PAIN OR DISCOMFORT AT THIS TIME. NO SOB NOTED. IV ON RIGHT AC #20 INTACT AND PATENT WITH IVF NS RUNNING AT 75ML/HR. KEPT CLEAN, DRY AND COMFORTABLE. SIDE RAILS UP X2. BED ALARM ON. BED LOCKED AND IN LOWEST POSITION. CALL LIGHT WITHIN REACH. WILL ENDORSE TO POLICE COMMANDING OFFICER FOR CONTINUITY OF CARE.
[2017-10-13 20:00] VITALS: BP 122/60
--- NOTE | 2017-10-13 20:44 | NUR ---
RN OPENING NOTES RECEIVED REPORT FROM DEV KAYE. PATIENT A/A/O X2-3, ABLE TO MAKE NEEDS KNOWN IN [place] & TAGALOG. BREATHING EVEN & UNLABORED, TOLERATING O2 @ 2LPM W/ BREATHING TX IN PROGRESS @ THIS TIME. DENIES ANY SOB OR DIFFICULTY BREATHING. RADIAL PULSES PRESENT & BOUNDING. DENIES ANY CARDIAC DISTRESS. RIGHT AC IV #20 & LEFT FOREARM IV #20 W/ DRESSING CDI & IVF NS INFUSING WELL @ 75 ML/HR. NO SIGNS OF INFILTRATION NOTED. DENIES ANY PAIN OR DISCOMFORT. SAFETY MEASURES IN PLACE W/ BED ALARM ON & CALL LIGHT WITHIN REACH. INSTRUCTED TO USE CALL LIGHT FOR ASSISTANCE. WILL CONTINUE TO MONITOR.
[2017-10-13] MEDS: *INSULIN REGULAR(HUMULIN R)HUM 100 UNIT/ML VIAL SQ PRN (23:10)
[2017-10-13] MEDS: INSULIN GLARGINE, 100 UNIT/ML CARTRIDGE SQ SCH (23:11)
[2017-10-14] MEDS: IPRATROPIUM NEB FS 0.5 MG/2.5 ML AMPUL.NEB NEB SCH ×6 (03:43→22:03)
[2017-10-14 04:00] VITALS: BP 130/58
[2017-10-14] MEDS: BLOOD SUGAR DIAGNOSTIC 1 EACH STRIP IN SCH ×4 (07:30→21:26)
[2017-10-14] MEDS: ALBUTEROL FS 2.5 MG/0.5 ML VIAL.NEB NEB SCH ×2 (07:53→15:56)
[2017-10-14 08:00] VITALS: BP 129/64
[2017-10-14 08:49] LABS: EOSINOPHILS % (AUTO) 0.1 % (0.0-6.0); HEMATOCRIT 25 % (39-51); HEMOGLOBIN 8.2 g/dL (13.5-17.5); LYMPHOCYTES # (AUTO) 0.7 /CMM (0.8-4.8); LYMPHOCYTES % (AUTO) 4.3 % (20.0-44.0); MEAN CORPUSCULAR HEMOGLOBIN 29 PG (26.0-33.0); MEAN CORPUSCULAR HGB CONC 32 g/dl (31.0-36.0); MEAN CORPUSCULAR VOLUME 91 fL (80-96); MONOCYTES # (AUTO) 0.7 /CMM (0.1-1.30); MONOCYTES % (AUTO) 4.4 % (2.0-12.0); NEUTROPHILS # (AUTO) 15.5 /CMM (1.8-8.9); NEUTROPHILS % (AUTO) 91.2 % (43.0-81.0); PLATELET COUNT (AUTO) 227 /CMM (150-450); RDW COEFFICIENT OF VARIATION 15.6 (11.5-15.0)
[2017-10-14] MEDS: ASPIRIN EC 81 MG TABLET.DR PO SCH (08:59)
[2017-10-14] MEDS: ALLOPURINOL 100 MG TABLET PO SCH (09:00)
[2017-10-14] MEDS: MULTIVIT, IRON, MIN NO. 8, FA 1 TAB PO SCH (09:00)
[2017-10-14] MEDS: LACTOBACILLUS RHAMNOSUS GG 1 EACH CAP.SPRINK PO SCH ×2 (09:00→17:22)
[2017-10-14] MEDS: ATORVASTATIN 10 MG TABLET PO SCH (09:01)
[2017-10-14] MEDS: AMMONIUM LACTATE 227 GM BOTTLE TP SCH ×2 (09:01→17:40)
[2017-10-14 09:05] LABS: ALANINE AMINOTRANSFERASE 26 U/L (12-78); ALBUMIN 1.9 g/dL (3.4-5.0); ALKALINE PHOSPHATASE 399 U/L (46-116); ASPARTATE AMINOTRANSFERASE 186 U/L (15-37); BILIRUBIN,TOTAL 0.3 mg/dL (0.2-1.0); CALCIUM, SERUM 7.6 mg/dL (8.5-10.1); CARBON DIOXIDE 28 mmol/L (21-32); CHLORIDE 101 mmol/L (98-107); CREATININE 2.9 mg/dL (0.6-1.3); GLUCOSE 184 mg/dL (74-106); MAGNESIUM 2.6 mg/dL (1.8-2.4); PHOSPHORUS 4.8 mg/dL (2.5-4.9); POTASSIUM 4.4 mmol/L (3.5-5.1); SODIUM SERUM 136 mmol/L (136-145); TOTAL PROTEIN, SERUM 5.9 g/dL (6.4-8.2)
[2017-10-14 09:06] LABS: UREA NITROGEN, BLOOD 96 mg/dL (7-18)
[2017-10-14] MEDS: INSULIN REGULAR, HUMAN 100 UNIT/ML 3 ML VIAL SQ PRN ×3 (09:13→17:41)
[2017-10-14 16:00] VITALS: BP 135/68
[2017-10-14] MEDS: TAMSULOSIN 0.4 MG CAP.SR.24H PO SCH (17:22)
[2017-10-14] MEDS: AMLODIPINE BESYLATE 5 MG TABLET PO SCH (17:23)
--- NOTE | 2017-10-14 19:48 | NUR ---
RN OPENING NOTES RECEIVED REPORT FROM HARRY KAYE. PATIENT A/A/O X2-3, ABLE TO MAKE NEEDS KNOWN IN [place] & TAGALOG. BREATHING EVEN & UNLABORED, TOLERATING O2 @ 2LPM. DENIES ANY SOB OR DIFFICULTY BREATHING. RADIAL PULSES PRESENT & BOUNDING. DENIES ANY CARDIAC DISTRESS. RIGHT AC IV #20 & LEFT FOREARM IV #20 W/ DRESSING CDI. NO SIGNS OF INFILTRATION NOTED. DENIES ANY PAIN OR DISCOMFORT. SAFETY MEASURES IN PLACE W/ BED ALARM ON & CALL LIGHT WITHIN REACH. INSTRUCTED TO USE CALL LIGHT FOR ASSISTANCE. WILL CONTINUE TO MONITOR.
[2017-10-14 20:00] VITALS: BP 155/76
[2017-10-14] MEDS: INSULIN GLARGINE, 100 UNIT/ML CARTRIDGE SQ SCH (21:28)
[2017-10-14] MEDS: *INSULIN REGULAR(HUMULIN R)HUM 100 UNIT/ML VIAL SQ PRN (21:29)
[2017-10-14] MEDS ORDERED: LEVALBUTEROL HCL NEB 1.25 MG/0.5 ML VIAL.NEB NEB SCH (22:00)
--- NOTE | 2017-10-14 22:00 | NUR ---
RN NOTES PATIENT C/O FEELING LIKE HE'S NOT GETTING ENOUGH AIR & COUGHING. 1930 BREATHING TX DOSE NOT GIVEN D/T INCREASED HR 120S. DR LIZ INFORMED AND REQUESTED ORDER FOR XOPENEX. NEW ORDER FOR XOPENEX AND ROBITUSSIN W/ CODEINE RECEIVED. BREATHING TX GIVEN BY RT & O2 INCREASED TO 4LPM VIA NC. BARBRA @ 96-98%. WILL CONTINUE TO MONITOR.
[2017-10-14] MEDS ORDERED: LEVALBUTEROL HCL NEB 1.25 MG/0.5 ML VIAL.NEB ONE (22:01)
[2017-10-14] MEDS: LEVALBUTEROL HCL NEB 1.25 MG/0.5 ML VIAL.NEB NEB SCH (22:08)
[2017-10-14] MEDS: HYDROCODONE/APAP 5/325MG 1 EACH TABLET PO PRN (22:25)
[2017-10-14] MEDS ORDERED: CODEINE/PROMETHAZINE HCL 5 ML UDC PO PRN (22:30)
[2017-10-14] MEDS ORDERED: LORAZEPAM INJ 2 MG/ML VIAL IV ONE (23:30)
--- NOTE | 2017-10-14 23:45 | NUR ---
RN NOTES PATIENT NOTED W/ INCREASED ANXIOUSNESS & RESTLESSNESS. PATIENT C/O FEELING UNEASY BUT DENIES DIFFICULTY BREATHING OR CHEST PAIN. HR NOTED IN 130S. DR LIZ INFORMED & RECEIVED ORDER TO TRANSFER PATIENT TO TELE AND ONE TIME DOSE OF ATIVAN IV 0.5MG. PATIENT PLACED ON TELE & NOTED W/ SINUS TACH & HR 130-140S. EPISODES OF IN AND OUT SVT W/ HR 150S-160 ALSO NOTED. STAT EKG DONE & SHOWED SINUS TACH. ATIVAN GIVEN.
[2017-10-15] VITALS: BP 121/53
--- NOTE | 2017-10-15 | NUR ---
RN NOTES PATIENT NOW RESTING COMFORTABLY IN BED. REMAINS ON TELE W/ SINUS TACH BUT HR DECREASED TO LOW 100S. WILL CONTINUE TO MONITOR CLOSELY.
[2017-10-15] MEDS: IPRATROPIUM NEB FS 0.5 MG/2.5 ML AMPUL.NEB NEB SCH ×6 (03:48→23:13)
[2017-10-15 04:00] VITALS: BP 130/65
[2017-10-15 07:07] LABS: ALANINE AMINOTRANSFERASE 27 U/L (12-78); ALBUMIN 2.1 g/dL (3.4-5.0); ALKALINE PHOSPHATASE 374 U/L (46-116); ASPARTATE AMINOTRANSFERASE 129 U/L (15-37); BILIRUBIN,TOTAL 0.4 mg/dL (0.2-1.0); CALCIUM, SERUM 7.9 mg/dL (8.5-10.1); CARBON DIOXIDE 27 mmol/L (21-32); CHLORIDE 101 mmol/L (98-107); CREATININE 2.8 mg/dL (0.6-1.3); GLUCOSE 94 mg/dL (74-106); MAGNESIUM 2.6 mg/dL (1.8-2.4); PHOSPHORUS 4.8 mg/dL (2.5-4.9); POTASSIUM 4.3 mmol/L (3.5-5.1); SODIUM SERUM 138 mmol/L (136-145); TOTAL PROTEIN, SERUM 6.5 g/dL (6.4-8.2)
[2017-10-15 07:10] LABS: UREA NITROGEN, BLOOD 91 mg/dL (7-18)
[2017-10-15 07:11] LABS: APPEARANCE,URINE SL CLOUDY (CLEAR); BILIRUBIN,URINE NEGATIVE (NEGATIVE); BLOOD, URINE 3+ Ery/uL (NEGATIVE); COLOR,URINE YELLOW (YELLOW); KETONES,URINE NEGATIVE (NEGATIVE); LEUKOCYTE ESTERASE ,URINE 1+ (NEGATIVE); NITRITE, URINE NEGATIVE (NEGATIVE); PROTEIN,URINE 1+ mg/dl (NEGATIVE); UGLUCOSE NEGATIVE (NEGATIVE); UROBILINOGEN,URINE 0.2 EU/dL (0.2)
[2017-10-15 07:21] LABS: CREATININE, URINE 68.6 MG/DL (30.0-125.0); URINE TOTAL PROTEIN 118.9 mg/dL (0-11.9)
[2017-10-15 07:22] LABS: BACTERIA,URINE Few /HPF (None Seen); YEAST,URINE Moderate /HPF (None Seen)
[2017-10-15 07:31] LABS: MONOCYTES # (AUTO) 0.9 /CMM (0.1-1.30)
[2017-10-15] MEDS: LEVALBUTEROL HCL NEB 1.25 MG/0.5 ML VIAL.NEB NEB SCH ×3 (07:35→23:13)
[2017-10-15 07:39] LABS: HEMATOCRIT 29 % (39-51); HEMOGLOBIN 9.3 g/dL (13.5-17.5); LYMPHOCYTES # (AUTO) 1.1 /CMM (0.8-4.8); LYMPHOCYTES % (AUTO) 6.3 % (20.0-44.0); MEAN CORPUSCULAR HEMOGLOBIN 30 PG (26.0-33.0); MEAN CORPUSCULAR HGB CONC 32 g/dl (31.0-36.0); MEAN CORPUSCULAR VOLUME 91 fL (80-96); MONOCYTES % (AUTO) 5.2 % (2.0-12.0); NEUTROPHILS # (AUTO) 14.8 /CMM (1.8-8.9); NEUTROPHILS % (AUTO) 87.5 % (43.0-81.0); PLATELET COUNT (AUTO) 219 /CMM (150-450); RED BLOOD CELL COUNT(AUTO) 3.15 MIL/uL (4.5-6.0); WHITE BLOOD COUNT (AUTO) 16.9 K/uL (4.3-11.0)
[2017-10-15 08:00] VITALS: BP 127/62
[2017-10-15 08:27] LABS: EOSINOPHIL,URINE None Seen
[2017-10-15] MEDS: BLOOD SUGAR DIAGNOSTIC 1 EACH STRIP IN SCH ×4 (08:29→21:24)
[2017-10-15] MEDS: ASPIRIN EC 81 MG TABLET.DR PO SCH (08:36)
[2017-10-15] MEDS: MULTIVIT, IRON, MIN NO. 8, FA 1 TAB PO SCH (08:36)
[2017-10-15] MEDS: LACTOBACILLUS RHAMNOSUS GG 1 EACH CAP.SPRINK PO SCH ×2 (08:36→17:17)
[2017-10-15] MEDS: ALLOPURINOL 100 MG TABLET PO SCH (08:36)
[2017-10-15] MEDS: ATORVASTATIN 10 MG TABLET PO SCH (08:36)
[2017-10-15] MEDS: AMMONIUM LACTATE 227 GM BOTTLE TP SCH ×2 (08:38→17:24)
[2017-10-15] MEDS: HYDROCODONE/APAP 5/325MG 1 EACH TABLET PO PRN ×2 (09:28→21:23)
--- NOTE | 2017-10-15 09:43 | NUR ---
TELE/RN INITIAL NOTES RECEIVED PT IN BED, A/OX2-3, ON 4L O2 VIA NC, TOLERATING WELL, NO SOB NOTED. SINUS TACH, HR 130S ON TELE MONITOR. WITH INTACT RAC G20 AND LFA G20 SL. NO SIGNS OF INFECTION NOTED. HOB ELEVATED. SAFETY MEASURES IN PLACED. BED ALARM ON. CALL LIGHT WITHIN REACH. WILL CONT TO MONITOR
[2017-10-15] MEDS: IV NS 0.9% 1,000 ML IV PRN (10:48)
[2017-10-15 12:00] VITALS: BP 105/59
[2017-10-15] MEDS ORDERED: PIPERACILLIN /TAZOBACTAM 2.25 G in IV D5W 50 ML IV SCH (12:00)
--- NOTE | 2017-10-15 12:40 | NUR ---
RN NOTES SEEN BY CARLTON DUMONT, CLARIFIED IF WANT TO CONT IVFLUIDS, PER OUTSOLE SPLICER OK TO CONT IV FLUIDS FOR NOW
[2017-10-15] MEDS: INSULIN REGULAR, HUMAN 100 UNIT/ML 3 ML VIAL SQ PRN (12:59)
--- NOTE | 2017-10-15 16:46 | NUR ---
RN NOTES REPORT GIVEN TO MIKKI LLANOS FOR BHARAT
--- NOTE | 2017-10-15 16:50 | NUR ---
RN NOTES RECEIVED PATIENT A/OX3, AT BEDSIDE, NO DISTRESS NOTED, NO SOB NOTED, KEPT COMFORTABLE, NEEDS ATTENDED, CALL LIGHT WITHIN REACH, WILL CONTINUE TO MONITOR.
[2017-10-15] MEDS: TAMSULOSIN 0.4 MG CAP.SR.24H PO SCH (17:17)
[2017-10-15] MEDS: AMLODIPINE BESYLATE 5 MG TABLET PO SCH (17:19)
[2017-10-15] MEDS: ACETAMINOPHEN 325 MG TABLET PO PRN (18:35)
--- NOTE | 2017-10-15 18:56 | NUR ---
RN NOTES PATIENT NOTED TO HAVE REDNESS ON SCROTUM AREA AND BILATERAL GROIN. PHOTOS TAKEN AND PLACED IN CHART, PERICARE RENDERED, Z-GUARD APPLIED, WOUND CONSULT ORDERED, NEEDS ATTENDED AND MET, CALL LIGHT WITHIN REACH, WILL ENDORSE TO LONG CHAIN BEAMER FOR BHARAT.
[2017-10-15 20:00] VITALS: BP 120/55
[2017-10-15] MEDS: INSULIN GLARGINE, 100 UNIT/ML CARTRIDGE SQ SCH (21:32)
[2017-10-15] MEDS: *INSULIN REGULAR(HUMULIN R)HUM 100 UNIT/ML VIAL SQ PRN (21:39)
[2017-10-16] MEDS: IV NS 0.9% 1,000 ML IV PRN (01:05)
[2017-10-16 04:00] VITALS: BP 137/65
[2017-10-16] MEDS: IPRATROPIUM NEB FS 0.5 MG/2.5 ML AMPUL.NEB NEB SCH ×4 (04:22→15:30)
--- NOTE | 2017-10-16 07:20 | NUR ---
RN OPENING NOTES RECEIVED PATIENT IN BED RESTING. A/OX2-3, RESPONSIVE TO VERBAL STIMULI. ON 2LPM VIA NC, 97% SATURATION. ON TELEMONITORING ST 118. NO ACUTE DISTRESS, NO SOB. DENIED PAIN OR DISCOMFORT AT THIS TIME. IV SITE INTACT AND PATENT. KEPT PATIENT SAFE AND COMFORTABLE. BED IN LOW LOCKED POSITION, SEMIFOWLERS, SIDERAILS UPX2, CALL LIGHT IN REACH. WILL CONTINUE TO MONIOTR ACCORDINGLY.
[2017-10-16] MEDS: LEVALBUTEROL HCL NEB 1.25 MG/0.5 ML VIAL.NEB NEB SCH ×2 (07:58→15:30)
[2017-10-16 08:00] VITALS: BP 148/79
[2017-10-16] MEDS: ATORVASTATIN 10 MG TABLET PO SCH (08:29)
[2017-10-16] MEDS: ASPIRIN EC 81 MG TABLET.DR PO SCH (08:29)
[2017-10-16] MEDS: MULTIVIT, IRON, MIN NO. 8, FA 1 TAB PO SCH (08:29)
[2017-10-16] MEDS: LACTOBACILLUS RHAMNOSUS GG 1 EACH CAP.SPRINK PO SCH ×2 (08:29→16:48)
[2017-10-16] MEDS: ALLOPURINOL 100 MG TABLET PO SCH (08:30)
[2017-10-16] MEDS: AMMONIUM LACTATE 227 GM BOTTLE TP SCH ×2 (08:35→16:52)
[2017-10-16] MEDS: BLOOD SUGAR DIAGNOSTIC 1 EACH STRIP IN SCH ×3 (08:35→16:48)
[2017-10-16 12:00] VITALS: BP 136/67
[2017-10-16] MEDS: INSULIN REGULAR, HUMAN 100 UNIT/ML 3 ML VIAL SQ PRN ×2 (12:10→16:56)
[2017-10-16 12:16] LABS: BASOPHILS # (AUTO) 0.4 /CMM (0.0-0.2); BASOPHILS % (AUTO) 2.9 % (0.0-2.0); EOSINOPHILS % (AUTO) 1.5 % (0.0-6.0); HEMATOCRIT 26 % (39-51); HEMOGLOBIN 7.7 g/dL (13.5-17.5); LYMPHOCYTES # (AUTO) 0.7 /CMM (0.8-4.8); LYMPHOCYTES % (AUTO) 4.6 % (20.0-44.0); MEAN CORPUSCULAR HEMOGLOBIN 27 PG (26.0-33.0); MEAN CORPUSCULAR HGB CONC 30 g/dl (31.0-36.0); MEAN CORPUSCULAR VOLUME 90 fL (80-96); MONOCYTES # (AUTO) 0.4 /CMM (0.1-1.30); MONOCYTES % (AUTO) 2.9 % (2.0-12.0); NEUTROPHILS # (AUTO) 13.4 /CMM (1.8-8.9); NEUTROPHILS % (AUTO) 88.1 % (43.0-81.0); PLATELET COUNT (AUTO) 187 /CMM (150-450); RDW COEFFICIENT OF VARIATION 16.5 (11.5-15.0); RED BLOOD CELL COUNT(AUTO) 2.83 MIL/uL (4.5-6.0); WHITE BLOOD COUNT (AUTO) 15.2 K/uL (4.3-11.0)
[2017-10-16 12:31] LABS: CALCIUM, SERUM 7.5 mg/dL (8.5-10.1); CARBON DIOXIDE 23 mmol/L (21-32); CHLORIDE 100 mmol/L (98-107); CREATININE 3.3 mg/dL (0.6-1.3); GLUCOSE 176 mg/dL (74-106); POTASSIUM 4.3 mmol/L (3.5-5.1); SODIUM SERUM 133 mmol/L (136-145)
[2017-10-16 12:33] LABS: UREA NITROGEN, BLOOD 90 mg/dL (7-18)
[2017-10-16 13:39] LABS: BAND % (MANUAL) 2 % (0.0-5.0); LYMPHOCYTES % (MANUAL) 3 % (16-48); METAMYELOCYTES % 1 % (0-0); MONOCYTES % (MANUAL) 1 % (0-11.0); NEUTROPHILS % (MANUAL) 93 (42-76)
--- NOTE | 2017-10-16 15:53 | NUR ---
PATIENT FOR DISCHARGE. HR STILL TACHY, 120-150s. CRIS DUMONT NP NOTIFIED, EKG OREDERED STAT.
[2017-10-16 16:00] VITALS: BP_SYST 132; BP_SYST 149; BP_DIAS 69; BP_DIAS 71
--- NOTE | 2017-10-16 16:16 | NUR ---
[facility] DEFERRED. STAT EKG DONE ORDERED BY PRACTITIONER TIM.
[2017-10-16] MEDS ORDERED: METOPROLOL TARTRATE 50 MG TABLET PO SCH (16:30)
[2017-10-16] MEDS: TAMSULOSIN 0.4 MG CAP.SR.24H PO SCH (17:12)
[2017-10-16] MEDS: AMLODIPINE BESYLATE 5 MG TABLET PO SCH (17:13)
[2017-10-16 18:00] VITALS: BP 132/69
[2017-10-16] MEDS ORDERED: METO50TA16 PO (18:13)
[2017-10-16] MEDS: ONDANSETRON HCL/PF 4 MG/2 ML VIAL IVP PRN (18:52)
--- NOTE | 2017-10-16 19:00 | NUR ---
DISCHARGED PATIENT IN STABLE CONDITION PICKED UP BY AMBULANCE CREW. REPORT GIVEN TO REYMUNDO RN AT [facility], DISCHARGE INSTRUCTIONS GIVEN TO PATIENT AND SNF RN, VERBALIZED UNDERSTANDING. PAPERWORK GIVEN TO CATERER'S AIDE. ALL BELONGINGS RETURNED, FORM SIGNED. REMOVED PIV, APPLIED PRESSURE, NO BLEEDING, NO COMPLICATIONS. REMOVED NAME BAND.
[2017-10-20 07:08] LABS: COMPLEMENT C3, SERUM 73 mg/dL (82-167); COMPLEMENT C4, SERUM 27 mg/dL (14-44)
== END 2017-10-16 19:00 | DRG 177 ==
LOC: ER 14:49 → TELE 15:49 → MED 10-01 08:07 → ICU 10-05 19:33 → TELE1 10-06 15:34 → MEDSG1 10-07 17:05 → TELE1 10-14 22:57
PROVIDERS: ADMIT Family Medicine; ATTEND Family Medicine
PROC: 0W993ZZ Drainage of Right Pleural Cavity, Percutaneous Approach (ICD-10-PCS; principal; 2017-10-07)
DX: J15.6 Pneumonia due to other Gram-negative bacteria (principal); J96.91 Respiratory failure, unspecified with hypoxia; N17.0 Acute kidney failure with tubular necrosis; E44.0 Moderate protein-calorie malnutrition; I13.0 Hypertensive heart and chronic kidney disease with heart failure and stage 1 through stage 4 chronic kidney disease, or unspecified chronic kidney disease; E22.2 Syndrome of inappropriate secretion of antidiuretic hormone; I50.32 Chronic diastolic (congestive) heart failure; J90 Pleural effusion, not elsewhere classified; J15.9 Unspecified bacterial pneumonia; E11.22 Type 2 diabetes mellitus with diabetic chronic kidney disease; E78.5 Hyperlipidemia, unspecified; I25.10 Atherosclerotic heart disease of native coronary artery without angina pectoris; M19.90 Unspecified osteoarthritis, unspecified site; N18.9 Chronic kidney disease, unspecified; Z87.01 Personal history of pneumonia (recurrent); Z87.891 Personal history of nicotine dependence; N40.0 Benign prostatic hyperplasia without lower urinary tract symptoms; D63.8 Anemia in other chronic diseases classified elsewhere; E83.51 Hypocalcemia; R74.8 Abnormal levels of other serum enzymes; E88.09 Other disorders of plasma-protein metabolism, not elsewhere classified; E11.65 Type 2 diabetes mellitus with hyperglycemia; Z68.24 Body mass index [BMI] 24.0-24.9, adult; T50.2X5A Adverse effect of carbonic-anhydrase inhibitors, benzothiadiazides and other diuretics, initial encounter; Y92.009 Unspecified place in unspecified non-institutional (private) residence as the place of occurrence of the external cause; T38.0X5A Adverse effect of glucocorticoids and synthetic analogues, initial encounter; I34.0 Nonrheumatic mitral (valve) insufficiency
CPT/HCPCS: 36415; 36600; 71045-TC; 76700-TC; 76942-TC; 80048-TC; 80053-TC; 80061-TC; 80076-TC; 80202-TC; 81000-TC; 82550-TC; 82570-TC; 82803-TC; 82962-TC; 83605-TC; 83735-TC; 83880; 83935-TC; 84100-TC; 84155-TC; 84295-TC; 84300-TC; 84443-TC; 84484-TC; 84550-TC; 85025-TC; 85652-TC; 85730-TC; 86706; 87040-TC; 87070-TC; 87075-TC; 87081-TC; 87086-TC; 87102-TC; 87340; 89051-TC; 93307-TC; 94760-TC; 94799-TC; 97112-TC; 97116-TC; 97530-TC; A4216; A4349; A4606; J0692; J1815; J1940; J2060; J2405; J2543; J2930; J3370; J3475; J3490; J7030; J7040; J7050; J7060; Z7610